=== PATIENT | female | born 1955 | race African-American/Black ===

== ENCOUNTER 2016-08-14 16:30 | Observation (INO) ==
[2016-08-14] MEDS ORDERED: MAGNESIUM SULF RIDER 4 GM in PREMIX 1 EACH IV PRN (17:06)
[2016-08-14] MEDS ORDERED: ACETAMINOPHEN 325 MG TABLET PO PRN (17:06)
[2016-08-14] MEDS ORDERED: ZALEPLON 5 MG CAPSULE PO PRN (17:06)
[2016-08-14] MEDS ORDERED: BISACODYL 5 MG TABLET PO PRN (17:06)
[2016-08-14] MEDS ORDERED: DOCUSATE SODIUM 100 MG CAPSULE PO PRN (17:06)
[2016-08-14] MEDS ORDERED: MAGNESIUM SULF RIDER 2 GM in PREMIX 1 EACH IV PRN (17:06)
[2016-08-14] MEDS ORDERED: NITROGLYCERIN SL 0.4 MG TABLET SL PRN (17:12)
[2016-08-14] MEDS ORDERED: ENOXAPARIN 120 MG/0.8 ML SYRINGE SUBCUT ONE (17:14)
[2016-08-14] MEDS ORDERED: ERGOCALCIFEROL 50,000 UNIT CAPSULE PO SCH (17:30)
[2016-08-14 19:21] LABS: Basophils % 0.2 % (0.0-0.8); Eosinophils # 0.1 10*3/uL (0.0-0.87); Eosinophils % 2.6 % (0.00-10.9); Hematocrit 35.9 VOL% (35.7-47.0); Hemoglobin 11.7 GM/DL (12.0-16.0); Immature Granulocytes % 0.4 %; Immature Granulocytes Absolute 0.02 #; Lymphocytes # 1.8 10*3/uL (1.4-4.0); Lymphocytes % 35.6 % (21.3-54.2); Mean Corpuscular HGB Conc 32.6 GM/DL (32-36); Mean Corpuscular Hemoglobin 28 PG (27-34); Mean Corpuscular Volume 86.9 FL (87-102); Mean Platelet Volume 9.6 FL (9.6-12.0); Monocytes # 0.5 10*3/uL (0.11-0.8); Monocytes % 9.8 % (1.7-12.7); Neutrophils # 2.6 10*3/uL (1.4-7.4); Neutrophils % 51.4 % (38.7-73.9); Platelet Count 162 T/CUMM (130-400); Red Blood Count 4.13 MC/CUMM (3.8-5.5); Red Cell Distribution Width 13.6 % (9.3-17.3)
--- NOTE | 2016-08-14 19:42 | XRay Report ---
Referring Physician: Lyndsay Dockery Exam: XR chest 1V portable Date: August 14, 2016 at 6:47 PM Reason: Shortness of breath Comparison: Chest x-ray portable August 26, 2013 Findings: The cardiac silhouette is normal in size for the portable technique. Soft tissue artifact is present at the lung bases. There is minimal atelectasis within the right midlung zone and possible venous congestion. No pneumothorax or definite pleural fluid is identified, but evaluation for pleural fluid is limited by the above-mentioned artifact at the lung bases. No acute osseous process is seen. Impression: There is minimal atelectasis within the right midlung zone and possible venous congestion. PROCEDURE INTERPRETED AT [facility] DEPARTMENT OF RADIOLOGY Final Report Signed by: Dr. Jeffrey Farrell
[2016-08-14 19:44] LABS: Troponin I Only < 0.015 NG/ML (0.00-0.045)
[2016-08-14 19:58] LABS: Alanine Aminotransferase 20 U/L (13-56); Albumin 3.6 G/DL (3.4-5.0); Alkaline Phosphatase 106 U/L (45-117); Aspartate Amino Transferase 24 U/L (0-37); Bilirubin,Total < 0.39 MG/DL (0.2-1.0); Blood Urea Nitrogen 16 MG/DL (7-18); Calcium 9.3 MG/DL (8.5-10.1); Glucose 106 MG/DL (74-106); Osmolality,Calculated 290.6 MOS/KG (273-304); Potassium 4.2 MMOL/L (3.5-5.1); Sodium 146 MMOL/L (136-145); Total Protein 6.8 G/DL (6.4-8.3)
[2016-08-14] MEDS: PROBENECID 500 MG TABLET PO SCH (21:06)
[2016-08-14] MEDS: CARVEDILOL 6.25 MG TABLET PO SCH (21:06)
[2016-08-14] MEDS: POTASSIUM CHLORIDE 10 MEQ TABLET PO SCH (21:06)
[2016-08-14] MEDS: ATORVASTATIN 40 MG TABLET PO SCH (21:06)
[2016-08-14] MEDS: CARBIDOPA/LEVODOPA 25-100 MG TABLET PO SCH (21:06)
[2016-08-15 00:48] LABS: Apearance,Urine CLEAR (Clear); Bilirubin,Urine Negative (Negative); Blood, Urine Negative (Negative); Glucose,Urine (UA) Negative (Negative); Ketones,Urine 5 mg/dL (Negative); Mucus,Urine Occasional /LPF (Occasional); Nitrite,Urine Negative (Negative); Protein,Urine Negative; RBC,Urine <1 /HPF (0-4); Squamous Epithelial Cell,Urine Occasional /HPF (0-10); Urine Color Yellow (Yellow); Urine Specific Gravity 1.016 (1.001-1.035); Urine Urobilinogen < 2.0 EU/DL (0.2-1.0); WBC,Urine <1 /HPF (0-6)
[2016-08-15 02:11] LABS: Basophils % 0.2 % (0.0-0.8); Eosinophils # 0.1 10*3/uL (0.0-0.87); Eosinophils % 2.7 % (0.00-10.9); Hematocrit 32.3 VOL% (35.7-47.0); Hemoglobin 10.4 GM/DL (12.0-16.0); Immature Granulocytes % 0.4 %; Immature Granulocytes Absolute 0.02 #; Lymphocytes % 41.9 % (21.3-54.2); Mean Corpuscular HGB Conc 32.2 GM/DL (32-36); Mean Corpuscular Hemoglobin 29 PG (27-34); Mean Corpuscular Volume 88.5 FL (87-102); Mean Platelet Volume 9.9 FL (9.6-12.0); Monocytes # 0.5 10*3/uL (0.11-0.8); Monocytes % 11.2 % (1.7-12.7); Neutrophils # 2.1 10*3/uL (1.4-7.4); Neutrophils % 43.6 % (38.7-73.9); Platelet Count 142 T/CUMM (130-400); Red Blood Count 3.65 MC/CUMM (3.8-5.5); Red Cell Distribution Width 13.5 % (9.3-17.3); White Blood Count 4.8 T/CUMM (4-12)
[2016-08-15 02:43] LABS: Troponin I Only < 0.015 NG/ML (0.00-0.045)
[2016-08-15 03:06] LABS: Alanine Aminotransferase < 6 U/L (13-56); Albumin 3.2 G/DL (3.4-5.0); Alkaline Phosphatase 90 U/L (45-117); Aspartate Amino Transferase 19 U/L (0-37); Bilirubin,Total < 0.39 MG/DL (0.2-1.0); Blood Urea Nitrogen 16 MG/DL (7-18); Calcium 8.6 MG/DL (8.5-10.1); Cholesterol 175 MG/DL (50-200); Glucose 113 MG/DL (74-106); HDL Cholesterol 54 MG/DL (40-60); Osmolality,Calculated 287.8 MOS/KG (273-304); Potassium 3.9 MMOL/L (3.5-5.1); Risk Ratio 3.24; Sodium 144 MMOL/L (136-145); Triglycerides 133 MG/DL (2-150); VLDL CHOLESTEROL 26.6 MG/DL
--- NOTE | 2016-08-15 06:35 | EKG Report ---
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
--- NOTE | 2016-08-15 07:24 | EKG Report ---
Stationary ECG Study [facility] Test Date: 08/15/2016 7:23:22 AM Pat Name: ABIEL COPELAND Department: Room: 268 Gender: F Solutions Architect: TAMIA : 1955 Requested by: Lyndsay Allison Order Number: [id number] Reading MD: REGULO STOVER Intervals [place] Rate: 56 P: 37 AR: 181 QRS: -9 QRSD: 94 T: 38 QT: 458 QTc: 450 Interpretive Statements SINUS RHYTHM At 56 bpm MINIMAL VOLTAGE CRITERIA FOR LVH, CONSIDER NORMAL VARIANT Electronically Signed On 08-20-16 15:25:13 CDT by REGULO STOVER [email or web address]
[2016-08-15] MEDS: LEVOTHYROXINE 25 MCG TABLET PO SCH (07:27)
--- NOTE | 2016-08-15 08:30 | Cardiology Progress Note ---
<Lyndsay Dockery E - Last Filed: 08/15/16 10:19> Assessment and Plan - Time spent with patient Time spent with patient: Greater than 30 minutes (1) Chest pain Status: Acute Assessment and plan: See plan of care listed below Current Visit: Yes (2) CAD (coronary artery disease) Status: Chronic Assessment and plan: See plan of care listed below Current Visit: Yes (3) Hypertension Status: Chronic Assessment and plan: See plan of care listed below Current Visit: Yes (4) Dyslipidemia Status: Chronic Assessment and plan: See plan of care listed below Current Visit: Yes (5) Obesity Status: Chronic Assessment and plan: See plan of care listed below Current Visit: Yes (6) Sleep apnea Status: Chronic Assessment and plan: See plan of care listed below Current Visit: Yes (7) Diabetes Status: Chronic Assessment and plan: See plan of care listed below Current Visit: Yes Cardiology - PN: Subj Interval history: PROGRAMMER BUSINESS: DR. CELIS Note from Dr. Celis's clinic has been scanned-in and will serve as her history and physical for admission. Ms. Doe, 61BF, was directly admitted from Dr. Celis's office yesterday with complaints concerning for angina. Patient identifies 2 different types of chest discomfort in the middle and left chest area. One is reproducible to palpation (described as sharp and stabbing) and one is occurring with exertion. Patient describes the latter chest pain as heaviness located in the mid to left chest area. This is occurring at various times, including with exertion. This is occurring once or twice daily lasting several minutes until she rests. There is no radiation, nausea, vomiting but it does affect her breathing. She rates the discomfort as 7 on a scale of 1-10. She is currently chest pain- free. She acknowledges that she has found difficulty walking room to room over the past several weeks without having to rest due to significant dyspnea on exertion. With this exertion, she often experiences a chest heaviness. Cardiac biomarkers are negative, EKG is unremarkable. History of known coronary artery disease. Last cardiac catheterization August 28, 2013 revealed numerous patent stents without evidence of significant fixed coronary obstruction, normal LVEF. Echocardiogram was done August 07, 2016 at [facility]. I do not have these results. Patient also acknowledges that she has had blood clots in her left lower leg over 10 years ago. I will order stat venous ultrasound bilateral lower extremities, d-dimer. I will keep her n.p.o. and discussed with Dr. Nava further need for cardiac workup including possible cardiac catheterization. She denies a history of IVP dye or shellfish allergy. ASSESSMENT/PLAN: 1. CHEST PAIN - some typical and atypical features. NPO for further testing this morning. 2. KNOWN CAD - continue ASA, betablocker. Lisinopril 5mg orally is a home med but was held due to possible LHC. 3. HYPERTENSION - usually well controlled. On betablocker, 4. DYSLIPIDEMIA - LDL 90. Changed Simvastatin (due to multiple drug interactions) to Atorvastatin this morning. 5. OBESITY - dietary counseling prior to discharge. 6. SLEEP APNEA - reports compliance with device Exam (Progress Note) - Constitutional Vitals: Period Temp Pulse Resp BP Sys/Ambriz Pulse Ox Last 24 Hr 97.7 F-9703 F 62-75 18-20 141-165/75-88 96-98 Exam: General: [Appears well with no apparent distress.] [Pleasant and cooperative. ] [Appears comfortable.] HEENT: [PERRL, normocephalic, atraumatic. Mucous membranes moist. No jaundice noted. Conjunctiva moist and clear, sclerae anicteric] Neck: No JVD/HJR, no thyromegaly or lymphadenopathy noted. No carotid bruit appreciated Cardiac: [Regular rate and rhythm.] [No murmur rub or gallop.] Lungs: [Clear to auscultation without accessory muscle use to assist the respiratory pattern.] Using oxygen intermittently Abdomen: Soft, bowel sounds normoactive. Nontender and nondistended. No abdominal bruit or thrill noted. No masses noted. Musculoskeletal: No fluid collection. Decreased range of motion is noted. Extremities: No clubbing, cyanosis noted. [ No edema noted.] Upper extremity pulses 2+. Lower extremity pulses 2+. Capillary refill less than 3 seconds. Skin: No unusual lesions or rashes. No skin breakdown appreciated. Neuro: Awake, alert and oriented 3. Moves all extremities well without hemiparesis or paralysis. No essential tremor is appreciated. Result/EKG - Labs CBC & BMP: 08/15/16 01:43 08/15/16 01:43 Lab Results: I have reviewed the past 24 hour labs Labs: Laboratory Results - last 24 hr 08/14/16 08/14/16 08/14/16 00:00 19:05 19:05 WBC 5.0 RBC 4.13 Hgb 11.7 L Hct 35.9 MCV 86.9 L MCH 28 MCHC 32.6 RDW 13.6 Plt Count 162 MPV 9.6 Neut % (Auto) 51.4 Lymph % (Auto) 35.6 Routt % (Auto) 9.8 Eos % (Auto) 2.6 Baso % (Auto) 0.2 Neut # (Auto) 2.6 Lymph # (Auto) 1.8 Routt # (Auto) 0.5 Eos # (Auto) 0.1 Baso # (Auto) 0.0 Immature Gran % 0.4 Nucleated RBC % 0.0 Immature Gran # 0.02 Nucleated RBCs # 0.00 Sodium 146 H Potassium 4.2 Chloride 108 H Carbon Dioxide 28 Anion Gap 14.2 BUN 16 Creatinine 1.20 H GFR Calculation 0 BUN/Creatinine Ratio 13.00 Glucose 106 POC Glucose Calculated Osmolality 290.6 Calcium 9.3 Total Bilirubin < 0.39 AST 24 ALT 20 Alkaline Phosphatase 106 Total Creatine Kinase CK-MB (CK-2) Troponin I B-Natriuretic Peptide Total Protein 6.8 Albumin 3.6 Globulin 3.2 Albumin/Globulin Ratio 1.1 Triglycerides Cholesterol LDL Cholesterol VLDL Cholesterol HDL Cholesterol Heart Disease Risk Ratio TSH 3rd Generation 2.610 Urine Color Yellow Urine Appearance Clear Urine pH 6.0 Ur Specific [place] 1.016 Urine Protein Negative Urine Glucose (UA) Negative Urine Ketones 5 Urine Blood Negative Urine Nitrate Negative Urine Bilirubin Negative Urine Urobilinogen < 2.0 H Urine Leukocytes Negative Urine RBC <1 Urine WBC <1 Ur Squamous Epith Cells Occasional Urine Mucus Occasional Ur Culture Indicated? Not indicated 08/14/16 08/14/16 08/15/16 19:05 19:05 01:43 WBC RBC Hgb Hct MCV MCH MCHC RDW Plt Count MPV Neut % (Auto) Lymph % (Auto) [place] % (Auto) Eos % (Auto) Baso % (Auto) Neut # (Auto) Lymph # (Auto) [place] # (Auto) Eos # (Auto) Baso # (Auto) Immature Gran % Nucleated RBC % Immature Gran # Nucleated RBCs # Sodium Potassium Chloride Carbon Dioxide Anion Gap BUN Creatinine GFR Calculation BUN/Creatinine Ratio Glucose POC Glucose Calculated Osmolality Calcium Total Bilirubin AST ALT Alkaline Phosphatase Total Creatine Kinase 197 H 161 CK-MB (CK-2) 1.7 1.3 Troponin I < 0.015 < 0.015 B-Natriuretic Peptide 132 H Total Protein Albumin Globulin Albumin/Globulin Ratio Triglycerides Cholesterol LDL Cholesterol VLDL Cholesterol HDL Cholesterol Heart Disease Risk Ratio TSH 3rd Generation Urine Color Urine Appearance Urine pH Ur Specific [place] Urine Protein Urine Glucose (UA) Urine Ketones Urine Blood Urine Nitrate Urine Bilirubin Urine Urobilinogen Urine Leukocytes Urine RBC Urine WBC Ur Squamous Epith Cells Urine Mucus Ur Culture Indicated? 08/15/16 08/15/16 08/15/16 01:43 01:43 08:04 WBC 4.8 RBC 3.65 L Hgb 10.4 L Hct 32.3 L MCV 88.5 MCH 29 MCHC 32.2 RDW 13.5 Plt Count 142 MPV 9.9 Neut % (Auto) 43.6 Lymph % (Auto) 41.9 [place] % (Auto) 11.2 Eos % (Auto) 2.7 Baso % (Auto) 0.2 Neut # (Auto) 2.1 Lymph # (Auto) 2.0 [place] # (Auto) 0.5 Eos # (Auto) 0.1 Baso # (Auto) 0.0 Immature Gran % 0.4 Nucleated RBC % 0.0 Immature Gran # 0.02 Nucleated RBCs # 0.00 Sodium 144 Potassium 3.9 Chloride 108 H Carbon Dioxide 26 Anion Gap 13.9 BUN 16 Creatinine 1.20 H GFR Calculation 1356 BUN/Creatinine Ratio 13.00 Glucose 113 H POC Glucose 100 Calculated Osmolality 287.8 Calcium 8.6 Total Bilirubin < 0.39 AST 19 ALT < 6 L Alkaline Phosphatase 90 Total Creatine Kinase CK-MB (CK-2) Troponin I B-Natriuretic Peptide Total Protein 6.0 L Albumin 3.2 L Globulin 2.8 Albumin/Globulin Ratio 1.1 Triglycerides 133 Cholesterol 175 LDL Cholesterol 90.0 VLDL Cholesterol 26.6 HDL Cholesterol 54 Heart Disease Risk Ratio 3.24 TSH 3rd Generation Urine Color Urine Appearance Urine pH Ur Specific [place] Urine Protein Urine Glucose (UA) Urine Ketones Urine Blood Urine Nitrate Urine Bilirubin Urine Urobilinogen Urine Leukocytes Urine RBC Urine WBC Ur Squamous Epith Cells Urine Mucus Ur Culture Indicated? - Diagnostic Findings Procedure: Chest x-ray: report reviewed by me - EKG EKG results: interpreted by wi EKG shows: sinus rhythm <Salvador Nava - Last Filed: 08/15/16 14:02> Cardiology - PN: Subj Interval history: Patient personally interviewed and examined and chart reviewed. I discussed this case with Lyndsay Dockery NP. I agree with the assessment and evaluation and plan. The patient has 2 types of chest pain one which is atypical for cardiac other than the heavy pressure sensation on his current disease and multiple risk factors certainly begs for definitive diagnosis. I think the patient had cardiac catheterization I discussed this with the patient the indication procedure having be carried out as well as the risk. I discussed cardiac catheterization and percutaneous coronary intervention with the patient and available family. I reviewed with them the indications for the procedure and the basis of how the procedure would be carried out. I also reviewed with them the risk of the procedure which include but not necessarily limited to access site bleeding, bruising, pain, swelling or vascular injury that may require emergency vascular surgery, blood transfusion, or thrombin injection. Also discussed the possibility of stroke, myocardial infarction, arrhythmia which may require electrocardioversion, and the possibility of dye reaction that would require medical therapy. Also discussed the possibility of coronary artery injury, ruptured, closure or perforation that may require emergency bypass surgery. We also discussed the possibility of from a major complication. They voice understanding and agree to proceed. Standard agrees to proceed. Postprocedure the patient will need risk factor modification. She will keep her follow with Dr. Celis as an outpatient. Exam (Progress Note) - Constitutional Vitals: Period Temp Pulse Resp BP Sys/Ambriz Pulse Ox Last 24 Hr 96.8 F-9703 F 56-75 18-20 141-165/75-88 96-100 Result/EKG - Labs CBC & BMP: 08/15/16 01:43 08/15/16 01:43 Labs: Laboratory Results - last 24 hr 08/14/16 08/14/16 08/14/16 00:00 19:05 19:05 WBC 5.0 RBC 4.13 Hgb 11.7 L Hct 35.9 MCV 86.9 L MCH 28 MCHC 32.6 RDW 13.6 Plt Count 162 MPV 9.6 Neut % (Auto) 51.4 Lymph % (Auto) 35.6 [place] % (Auto) 9.8 Eos % (Auto) 2.6 Baso % (Auto) 0.2 Neut # (Auto) 2.6 Lymph # (Auto) 1.8 [place] # (Auto) 0.5 Eos # (Auto) 0.1 Baso # (Auto) 0.0 Immature Gran % 0.4 Nucleated RBC % 0.0 Immature Gran # 0.02 Nucleated RBCs # 0.00 INR PT Patient/Control Mix D-Dimer, Quantitative Sodium 146 H Potassium 4.2 Chloride 108 H Carbon Dioxide 28 Anion Gap 14.2 BUN 16 Creatinine 1.20 H GFR Calculation 0 BUN/Creatinine Ratio 13.00 Glucose 106 POC Glucose Calculated Osmolality 290.6 Calcium 9.3 Total Bilirubin < 0.39 AST 24 ALT 20 Alkaline Phosphatase 106 Total Creatine Kinase CK-MB (CK-2) Troponin I B-Natriuretic Peptide Total Protein 6.8 Albumin 3.6 Globulin 3.2 Albumin/Globulin Ratio 1.1 Triglycerides Cholesterol LDL Cholesterol VLDL Cholesterol HDL Cholesterol Heart Disease Risk Ratio TSH 3rd Generation 2.610 Urine Color Yellow Urine Appearance Clear Urine pH 6.0 Ur Specific [place] 1.016 Urine Protein Negative Urine Glucose (UA) Negative Urine Ketones 5 Urine Blood Negative Urine Nitrate Negative Urine Bilirubin Negative Urine Urobilinogen < 2.0 H Urine Leukocytes Negative Urine RBC <1 Urine WBC <1 Ur Squamous Epith Cells Occasional Urine Mucus Occasional Ur Culture Indicated? Not indicated 08/14/16 08/14/16 08/15/16 19:05 19:05 01:43 WBC RBC Hgb Hct MCV MCH MCHC RDW Plt Count MPV Neut % (Auto) Lymph % (Auto) [place] % (Auto) Eos % (Auto) Baso % (Auto) Neut # (Auto) Lymph # (Auto) [place] # (Auto) Eos # (Auto) Baso # (Auto) Immature Gran % Nucleated RBC % Immature Gran # Nucleated RBCs # INR PT Patient/Control Mix D-Dimer, Quantitative Sodium Potassium Chloride Carbon Dioxide Anion Gap BUN Creatinine GFR Calculation BUN/Creatinine Ratio Glucose POC Glucose Calculated Osmolality Calcium Total Bilirubin AST ALT Alkaline Phosphatase Total Creatine Kinase 197 H 161 CK-MB (CK-2) 1.7 1.3 Troponin I < 0.015 < 0.015 B-Natriuretic Peptide 132 H Total Protein Albumin Globulin Albumin/Globulin Ratio Triglycerides Cholesterol LDL Cholesterol VLDL Cholesterol HDL Cholesterol Heart Disease Risk Ratio TSH 3rd Generation Urine Color Urine Appearance Urine pH Ur Specific [place] Urine Protein Urine Glucose (UA) Urine Ketones Urine Blood Urine Nitrate Urine Bilirubin Urine Urobilinogen Urine Leukocytes Urine RBC Urine WBC Ur Squamous Epith Cells Urine Mucus Ur Culture Indicated? 08/15/16 08/15/16 08/15/16 01:43 01:43 08:04 WBC 4.8 RBC 3.65 L Hgb 10.4 L Hct 32.3 L MCV 88.5 MCH 29 MCHC 32.2 RDW 13.5 Plt Count 142 MPV 9.9 Neut % (Auto) 43.6 Lymph % (Auto) 41.9 [place] % (Auto) 11.2 Eos % (Auto) 2.7 Baso % (Auto) 0.2 Neut # (Auto) 2.1 Lymph # (Auto) 2.0 [place] # (Auto) 0.5 Eos # (Auto) 0.1 Baso # (Auto) 0.0 Immature Gran % 0.4 Nucleated RBC % 0.0 Immature Gran # 0.02 Nucleated RBCs # 0.00 INR PT Patient/Control Mix D-Dimer, Quantitative Sodium 144 Potassium 3.9 Chloride 108 H Carbon Dioxide 26 Anion Gap 13.9 BUN 16 Creatinine 1.20 H GFR Calculation 1356 BUN/Creatinine Ratio 13.00 Glucose 113 H POC Glucose 100 Calculated Osmolality 287.8 Calcium 8.6 Total Bilirubin < 0.39 AST 19 ALT < 6 L Alkaline Phosphatase 90 Total Creatine Kinase CK-MB (CK-2) Troponin I B-Natriuretic Peptide Total Protein 6.0 L Albumin 3.2 L Globulin 2.8 Albumin/Globulin Ratio 1.1 Triglycerides 133 Cholesterol 175 LDL Cholesterol 90.0 VLDL Cholesterol 26.6 HDL Cholesterol 54 Heart Disease Risk Ratio 3.24 TSH 3rd Generation Urine Color Urine Appearance Urine pH Ur Specific [place] Urine Protein Urine Glucose (UA) Urine Ketones Urine Blood Urine Nitrate Urine Bilirubin Urine Urobilinogen Urine Leukocytes Urine RBC Urine WBC Ur Squamous Epith Cells Urine Mucus Ur Culture Indicated? 08/15/16 08/15/16 08/15/16 10:10 10:17 10:17 WBC RBC Hgb Hct MCV MCH MCHC RDW Plt Count MPV Neut % (Auto) Lymph % (Auto) [place] % (Auto) Eos % (Auto) Baso % (Auto) Neut # (Auto) Lymph # (Auto) [place] # (Auto) Eos # (Auto) Baso # (Auto) Immature Gran % Nucleated RBC % Immature Gran # Nucleated RBCs # INR 1.0 PT Patient/Control Mix 10.6 D-Dimer, Quantitative 0.9 Sodium Potassium Chloride Carbon Dioxide Anion Gap BUN Creatinine GFR Calculation BUN/Creatinine Ratio Glucose POC Glucose Calculated Osmolality Calcium Total Bilirubin AST ALT Alkaline Phosphatase Total Creatine Kinase 173 CK-MB (CK-2) 1.4 Troponin I < 0.015 B-Natriuretic Peptide Total Protein Albumin Globulin Albumin/Globulin Ratio Triglycerides Cholesterol LDL Cholesterol VLDL Cholesterol HDL Cholesterol Heart Disease Risk Ratio TSH 3rd Generation Urine Color Urine Appearance Urine pH Ur Specific [place] Urine Protein Urine Glucose (UA) Urine Ketones Urine Blood Urine Nitrate Urine Bilirubin Urine Urobilinogen Urine Leukocytes Urine RBC Urine WBC Ur Squamous Epith Cells Urine Mucus Ur Culture Indicated? 08/15/16 11:27 WBC RBC Hgb Hct MCV MCH MCHC RDW Plt Count MPV Neut % (Auto) Lymph % (Auto) [place] % (Auto) Eos % (Auto) Baso % (Auto) Neut # (Auto) Lymph # (Auto) [place] # (Auto) Eos # (Auto) Baso # (Auto) Immature Gran % Nucleated RBC % Immature Gran # Nucleated RBCs # INR PT Patient/Control Mix D-Dimer, Quantitative Sodium Potassium Chloride Carbon Dioxide Anion Gap BUN Creatinine GFR Calculation BUN/Creatinine Ratio Glucose POC Glucose 89 Calculated Osmolality Calcium Total Bilirubin AST ALT Alkaline Phosphatase Total Creatine Kinase CK-MB (CK-2) Troponin I B-Natriuretic Peptide Total Protein Albumin Globulin Albumin/Globulin Ratio Triglycerides Cholesterol LDL Cholesterol VLDL Cholesterol HDL Cholesterol Heart Disease Risk Ratio TSH 3rd Generation Urine Color Urine Appearance Urine pH Ur Specific [place] Urine Protein Urine Glucose (UA) Urine Ketones Urine Blood Urine Nitrate Urine Bilirubin Urine Urobilinogen Urine Leukocytes Urine RBC Urine WBC Ur Squamous Epith Cells Urine Mucus Ur Culture Indicated?
[2016-08-15] MEDS ORDERED: ASPIRIN EC 325 MG TABLET PO SCH (09:00)
[2016-08-15] MEDS ORDERED: metOLazone 5 MG TABLET PO SCH (09:00)
[2016-08-15] MEDS ORDERED: SIMVASTATIN 40 MG TABLET PO SCH (09:00)
--- NOTE | 2016-08-15 10:11 | Ultrasound Report ---
US venous doppler LE BI Indication: Edema. Comparison: No relevant comparison. Technique: Grayscale, spectral, and color Doppler interrogation of the bilateral lower extremity veins was performed. Augmentation and compression was performed. Findings: Grayscale, color Doppler, and pulsed Doppler evaluation of the veins of the bilateral lower extremity demonstrates no evidence of deep venous thrombosis. IMPRESSION: No evidence of deep venous thrombosis in either lower extremity. PROCEDURE INTERPRETED AT [facility] DEPARTMENT OF RADIOLOGY Final Report Signed by: Dr Bari Olivia
[2016-08-15] MEDS ORDERED: POTASSIUM CHLORIDE RIDER 10 MEQ in PREMIX 1 EACH IV PRN (10:52)
[2016-08-15] MEDS ORDERED: diphenhydrAMINE CAP 25 MG CAPSULE PO ONE (10:52)
[2016-08-15] MEDS ORDERED: MAGNESIUM SULF RIDER 2 GM in PREMIX 1 EACH IV PRN (10:52)
[2016-08-15 10:53] LABS: Troponin I Only < 0.015 NG/ML (0.00-0.045)
[2016-08-15] MEDS ORDERED: DIAZEPAM 5 MG TABLET PO ONE (11:00)
[2016-08-15 11:55] LABS: PT Patient Result 10.6 SECS
[2016-08-15] MEDS: CARBIDOPA/LEVODOPA 25-100 MG TABLET PO SCH ×2 (12:36→21:29)
[2016-08-15] MEDS: CYANOCOBALAMIN 500 MCG TABLET PO SCH (12:37)
[2016-08-15] MEDS: SERTRALINE 100 MG TABLET PO SCH (12:37)
[2016-08-15] MEDS: MONTELUKAST 10 MG TABLET PO SCH (12:37)
[2016-08-15] MEDS: CARVEDILOL 6.25 MG TABLET PO SCH ×2 (12:37→21:29)
[2016-08-15] MEDS: OMEGA 3 ACID ETHYL ESTERS 1 GM CAPSULE PO SCH (12:38)
[2016-08-15] MEDS: amLODIPine 5 MG TABLET PO SCH (12:38)
[2016-08-15] MEDS: PANTOPRAZOLE 40 MG TABLET PO SCH (12:39)
[2016-08-15] MEDS: PROBENECID 500 MG TABLET PO SCH ×2 (12:41→21:29)
[2016-08-15] MEDS: POTASSIUM CHLORIDE 10 MEQ TABLET PO SCH ×3 (12:42→21:28)
--- NOTE | 2016-08-15 12:51 | Event Note ---
Ms. Doe reports recurrent chest pain with exertional component. She has no history of CAD with previous stents. She ruled out for AL. We will schedule heart catheterization for right radial approach. I discussed with the patient the risks and benefits of heart catheterization including but not limited to: , stroke, heart attack, vascular damage, reaction to medicine or dye, bleeding requiring blood transfusion, failure of the procedure, and the possible need for planned or emergency surgery. I have answered all the patient's questions regarding the procedure, and the patient is agreeable to proceed.
[2016-08-15] MEDS ORDERED: LIDOCAINE 1% 20 ML VIAL ONE (12:55)
[2016-08-15] MEDS ORDERED: HYDROmorphone 2 MG/1 ML VIAL ONE (13:01)
[2016-08-15] MEDS ORDERED: MIDAZOLAM 2 MG/2 ML VIAL ONE (13:02)
[2016-08-15] MEDS ORDERED: NITROGLYCERIN DRIP 50 MG/250 ML BOTTLE IV ONE (13:21)
[2016-08-15] MEDS ORDERED: VERAPAMIL 5 MG/2 ML VIAL ONE (13:21)
[2016-08-15] MEDS ORDERED: ADENOSINE 90 MG/30 ML VIAL IV ONE (13:44)
[2016-08-15] MEDS ORDERED: ENOXAPARIN 60 MG/0.6 ML SYRINGE ONE (13:46)
[2016-08-15] MEDS ORDERED: hydrALAZINE 20 MG/1 ML VIAL ONE (14:02)
[2016-08-15] MEDS ORDERED: TICAGRELOR 90 MG TABLET ONE (14:11)
[2016-08-15] MEDS ORDERED: ONDANSETRON 4 MG/2 ML VIAL IV PRN (14:15)
[2016-08-15] MEDS ORDERED: SODIUM CHLORIDE 0.45% 1,000 ML IV SCH (14:30)
--- NOTE | 2016-08-15 14:30 | Cardiac Catheterization ---
Date of Procedure:: 08/15/16 Post-op diagnosis: same Procedure: Procedure performed: 1. Left heart catheterization 2. Coronary angiography 3. WaveWire evaluation of distal LAD lesion 4. Angioplasty stenting of distal LAD lesion with drug eluting stent oh (2.25 x 15 Synergy) Brief clinical summary: Mrs. Doe is a 61 year-old history of multiple stents having chest discomfort episodes repeatedly at times with exertional component. She ruled out for AL. Description of procedure: After obtaining informed consent the patient transferred to the catheterization lab, and the right wrist was prepped and draped in the usual sterile fashion. Next a short 6 Bengali sheath was placed in the right radial artery using the Seldinger technique after the patient received IV sedation, and local anesthetic. I then injected a vasodilator cocktail into the sheath. We gave her 0.5 mg per kilogram of intravenous Lovenox prior to the percutaneous intervention. The patient had received 1 mg/ kg of Lovenox over 12 hours ago. Next a 5 Bengali TIG catheter was advanced and engaged to the left coronary artery after which angiogram was performed in multiple views. This was then pulled back and manipulated to engage the right coronary artery where angiograms were taken multiple views. The catheter was removed over a J-wire. Percutaneous coronary mention was then performed as described below. Hemostasis was obtained with a TR band, using "patent hemostasis" technique. The patient was transferred from the catheterization lab in good condition. Percutaneous coronary intervention: An AL-1 guiding catheter was engaged to the left coronary artery which provided good support. A wave wire advanced the distal LAD with little difficulty. Next an adenosine infusion was started and after 1 minute the FFR was significant at 0.72. Therefore the infusion was discontinued, and a 2.0 x 12 noncompliant balloon was advanced across the area of distal LAD disease and was dilated multiple times eventually to rated burst pressure. There was probably 30% residual stenosis. The balloon was removed and a 2.25 x 16 Synergy stent was advanced across her disease was dilated to nominal pressures. The balloon was advanced a few millimeters in the distal edge was dilated to 3 roberto for 30 seconds. There was an excellent angiographic result. The patient tolerated the procedure well. Coronary angiography: Left main coronary is notable for disease per left introducing arteries proximally average caliber which is apex with diffuse 30-40 % disease proximally, and a discrete area of 70% disease distally. There are couple of tiny disease diagonal branches. Circumflex gives off a very small ramus branch, and a very large OM1 branch as well as a thin lady OM 2 branch. Proximal 50% discrete stenosis. Otherwise there are moderate irregularities. The right coronary artery is the dominant vessel is of average caliber. There is a 30-40% proximal stenosis, and moderate irregularities with a 60% proximal posterior lateral stenosis. The PDA appears to be from a early takeoff acute marginal for the most part. Impression: 1. Right dominant system 2. Coronary artery disease as described above including but not limited to: A. 30-40% proximal LAD disease with what appears to be a widely patent mid LAD stent, and discrete 70% distal LAD stenosis (deemed significant by WaveWire evaluation with FFR of 0.72 after 1 minute of adenosine infusion) B. 50% proximal circumflex stenosis with probable widely patent proximal OM stent (large marginal) C. 30-40% proximal RCA stenosis with 60% discrete proximal posterolateral stenosis 3. Status post angioplasty and stenting of distal LAD lesion with 2.25 x 16 Synergy drug-eluting stent with good result Recommendation discussion: I believe that she did very good result with regard to stenting Ms. Cannon distal LAD lesion. She will need to continue on aspirin and Brilinta. We will watch her overnight and have ordered her gentle hydration and holding her diuretics until morning. Anesthesia: minimal conscious sedation Surgeon / Physician: Jitendra Mann [employer] Supervisor: other Estimated blood loss: minimal Specimens: none sent Condition: stable Disposition: floor - Medications / Follow-up
--- NOTE | 2016-08-15 14:53 | Cardiac Catheterization ---
Date of Procedure:: 08/15/16 Post-op diagnosis: same Anesthesia: minimal conscious sedation Surgeon / Physician: Jitendra Mann Asbestos Surveyor: other Estimated blood loss: minimal Specimens: none sent Condition: stable Disposition: floor - Medications / Follow-up
--- NOTE | 2016-08-15 14:58 | EKG Report ---
Stationary ECG Study [facility] Test Date: 08/15/2016 2:57:52 PM Pat Name: ABIEL COPELAND Department: Room: 268 Gender: F Compliance Engineer Products: MICHELLE : 1955 Requested by: Jitendra Connors Order Number: [id number] Reading MD: REGULO STOVER Intervals [place] Rate: 63 P: 51 DC: 162 QRS: -9 QRSD: 101 T: 42 QT: 455 QTc: 463 Interpretive Statements SINUS RHYTHM WNL Electronically Signed On 08-20-16 15:38:52 CDT by REGULO STOVER [email or web address]
[2016-08-15 17:04] LABS: Troponin I Only < 0.015 NG/ML (0.00-0.045)
[2016-08-15] MEDS: FUROSEMIDE 80 MG TABLET PO SCH (17:37)
[2016-08-15] MEDS: sitaGLIPtin 100 MG TABLET PO SCH (17:37)
[2016-08-15] MEDS: ATORVASTATIN 40 MG TABLET PO SCH (21:28)
[2016-08-15] MEDS: TICAGRELOR 90 MG TABLET PO SCH (21:29)
[2016-08-16] MEDS: LEVOTHYROXINE 25 MCG TABLET PO SCH (06:00)
[2016-08-16 06:09] LABS: Basophils % 0.2 % (0.0-0.8); Eosinophils # 0.2 10*3/uL (0.0-0.87); Eosinophils % 3.5 % (0.00-10.9); Hematocrit 35.6 VOL% (35.7-47.0); Hemoglobin 11.8 GM/DL (12.0-16.0); Immature Granulocytes % 0.7 %; Immature Granulocytes Absolute 0.03 #; Lymphocytes # 1.4 10*3/uL (1.4-4.0); Lymphocytes % 30.2 % (21.3-54.2); Mean Corpuscular HGB Conc 33.1 GM/DL (32-36); Mean Corpuscular Hemoglobin 29 PG (27-34); Mean Corpuscular Volume 87.3 FL (87-102); Mean Platelet Volume 9.8 FL (9.6-12.0); Monocytes # 0.5 10*3/uL (0.11-0.8); Monocytes % 10.8 % (1.7-12.7); Neutrophils # 2.5 10*3/uL (1.4-7.4); Neutrophils % 54.6 % (38.7-73.9); Platelet Count 175 T/CUMM (130-400); Red Blood Count 4.08 MC/CUMM (3.8-5.5); Red Cell Distribution Width 13.7 % (9.3-17.3); White Blood Count 4.5 T/CUMM (4-12)
[2016-08-16 06:51] LABS: Calcium 8.6 MG/DL (8.5-10.1); Magnesium 1.9 MG/DL (1.8-2.4); Osmolality,Calculated 281.3 MOS/KG (273-304); Potassium 3.9 MMOL/L (3.5-5.1)
[2016-08-16 06:52] LABS: Troponin I Only < 0.015 NG/ML (0.00-0.045)
--- NOTE | 2016-08-16 07:07 | EKG Report ---
Stationary ECG Study [facility] Test Date: 08/16/2016 7:07:08 AM Pat Name: ABIEL COPELAND Department: Room: 268 Gender: F Director Of Gift Planning: TAMIA : 1955 Requested by: Jitendra Connors Order Number: [id number] Reading MD: REGULO STOVER Intervals [place] Rate: 69 P: 23 [place]: 168 QRS: 25 QRSD: 98 T: -1 QT: 447 QTc: 465 Interpretive Statements SINUS RHYTHM At 69 bpm LOW QRS VOLTAGE IN PRECORDIAL LEADS Mild and ST Electronically Signed On 08-20-16 15:55:11 CDT by REGULO STOVER [id number]
[2016-08-16 07:45] VITALS: BP 132/72
[2016-08-16] MEDS ORDERED: ASPIRIN EC 81 MG TABLET PO SCH (09:00)
[2016-08-16] MEDS: MONTELUKAST 10 MG TABLET PO SCH (09:13)
[2016-08-16] MEDS: amLODIPine 5 MG TABLET PO SCH (09:14)
[2016-08-16] MEDS: CARVEDILOL 6.25 MG TABLET PO SCH (09:14)
[2016-08-16] MEDS: TICAGRELOR 90 MG TABLET PO SCH (09:14)
[2016-08-16] MEDS: PANTOPRAZOLE 40 MG TABLET PO SCH (09:14)
[2016-08-16] MEDS: OMEGA 3 ACID ETHYL ESTERS 1 GM CAPSULE PO SCH (09:14)
[2016-08-16] MEDS: POTASSIUM CHLORIDE 10 MEQ TABLET PO SCH (09:14)
[2016-08-16] MEDS: SERTRALINE 100 MG TABLET PO SCH (09:15)
[2016-08-16] MEDS: sitaGLIPtin 100 MG TABLET PO SCH (09:15)
[2016-08-16] MEDS: PROBENECID 500 MG TABLET PO SCH (09:15)
[2016-08-16] MEDS: CARBIDOPA/LEVODOPA 25-100 MG TABLET PO SCH (09:16)
[2016-08-16] MEDS: FUROSEMIDE 80 MG TABLET PO SCH (09:16)
[2016-08-16] MEDS: CYANOCOBALAMIN 500 MCG TABLET PO SCH (09:16)
--- NOTE | 2016-08-16 10:13 | Discharge Summary ---
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 CELIS Ms. Doe, 61BF, was directly admitted from Dr. Celis's office August 14, 2016 for complaints concerning for angina. Cardiac biomarkers were negative. She did undergo elective cardiac catheterization August 15, 2016, performed by Dr. Mann. The following impression is noted: Impression: 1. Right dominant system 2. Coronary artery disease as described above including but not limited to: A. 30-40% proximal LAD disease with what appears to be a widely patent mid LAD stent, and discrete 70% distal LAD stenosis (deemed significant by Wave[employer] evaluation with FFR of 0.72 after 1 minute of adenosine infusion) B. 50% proximal circumflex stenosis with probable widely patent proximal OM stent (large marginal) C. 30-40% proximal RCA stenosis with 60% discrete proximal posterolateral stenosis 3. Status post angioplasty and stenting of distal LAD lesion with 2.25 x 16 Synergy drug-eluting stent with good result She tolerated the procedure well without complication and was returned to our telemetry unit in stable condition. Right radius access reveals no evidence of hematoma. Right radial pulse 3+ with brisk capillary refill. Labs overnight are stable. She has been ambulating and is anxious for release home. Having felt she is met maximal medical therapy, patient is being discharged home in stable condition. She will be given a 2 week follow-up appointment Dr. Celis. Patient will resume all preadmission cardiac medications including the following : Aspirin 81 mg orally daily Atorvastatin 40 mg orally each evening since his new) Carvedilol 6.25 mg orally twice daily Lasix 80 mg orally daily Nitroglycerin sublingual as needed Pantoprazole 40 mg grams orally daily Brilinta 90 mg orally twice daily without fail Amlodipine 5 mg orally daily Zaroxolyn 5 mg orally every other day Patient may benefit from an JOSY inhibitor and will defer to Dr. Celis's discretion to incorporate as able. - Time spent with patient Time with patient DS: Greater than 30 minutes Diagnosis - Discharge Diagnosis (1) Chest pain Status: Resolved (2) CAD (coronary artery disease) Status: Chronic (3) Hypertension Status: Chronic (4) Dyslipidemia Status: Chronic (5) Obesity Status: Chronic (6) Sleep apnea Status: Chronic (7) Diabetes Status: Chronic Specialty Discharge - Follow Up or Referrals Follow up with: Oni Celis MD [Physician] - 2 Weeks (BMP, magnesium, CBC. EKG) Discharge Plan - Discharge Data Disposition: Disch To Home/Self Care Condition at Discharge: Stable Discharge Diet: heart healthy Activity: other (Post cath expectations) Hygiene: no restrictions Weight Bearing at Discharge: other (Post cath expectations) Driving: other (Post cath expectations) Contact your physician if you experience:: fever over 101, Difficulty voiding, Redness or swelling, Nausea/Vomiting, Shortness of breath, Bleeding, pain uncontrolled by pain medications - Discharge Medications New Aspirin EC Tab 81 mg PO DAILY #30 tablet Pantoprazole Tab [Protonix Tab] 40 mg PO DAILY #30 tablet Ticagrelor [Brilinta] 90 mg PO BID #60 tablet amLODIPine [Norvasc] 5 mg PO DAILY #30 tablet Atorvastatin [Lipitor] 40 mg PO BEDTIME #30 tablet Continue Sertraline [Zoloft] 100 mg PO DAILY Montelukast Tab [Singulair Tab] 10 mg PO DAILY Linagliptin [Tradjenta] 5 mg PO DAILY Ergocalciferol (Vitamin D2) [Vitamin D2] 50,000 unit PO Q7D Cyanocobalamin Tab [Vitamin B12 Tab] 500 mcg PO DAILY Probenecid 500 mg PO BID Potassium Chloride 10 meq PO TID Pantoprazole Tab [Protonix Tab] 40 mg PO DAILY metOLazone [Zaroxolyn] 5 mg PO DAILY Nitroglycerin Sl Tab [Nitrostat] 0.4 mg SL Q5M PRN PRN Reason: Chest Pain Levothyroxine Tab [Synthroid Tab] 25 mcg PO DAILY@0700 HYDROcodone/ACETAMIN 10-325 [[place] 10-325] 1 tablet PO Q6H [place]-3 Fatty Acids [Fish Oil] 500 mg PO DAILY Furosemide Tab [Lasix Tab] 80 mg PO DAILY Carvedilol [Coreg] 6.25 mg PO BID Carbidopa/Levodopa 25-100 [Sinemet 25-100] 1 tablet PO BID Discontinued Simvastatin [Zocor] 40 mg PO DAILY amLODIPine [Norvasc] 5 mg PO DAILY Aspirin EC Tab 325 mg PO DAILY - Follow Up or Referral - Forms/Instructions Instructions: Left Heart Catheterization (DC), Heart Healthy Diet (GEN), Coronary Intravascular Stent Placement, Medical Representative (GEN) Exam - Constitutional Vitals: Period Temp Pulse Resp BP Sys/Ambriz Pulse Ox Last 24 Hr 96.8 F-97.6 F 56-75 16-20 116-148/61-101 95-100 Exam: General: [Appears well with no apparent distress.] [Pleasant and cooperative. ] [Appears comfortable.] HEENT: [PERRL, normocephalic, atraumatic. Mucous membranes moist. No jaundice noted. Conjunctiva moist and clear, sclerae anicteric] Neck: No JVD/HJR, no thyromegaly or lymphadenopathy noted. No carotid bruit appreciated Cardiac: [Regular rate and rhythm.] [No murmur rub or gallop.] Lungs: [Clear to auscultation without accessory muscle use to assist the respiratory pattern.] Using oxygen intermittently Abdomen: Soft, bowel sounds normoactive. Nontender and nondistended. No abdominal bruit or thrill noted. No masses noted. Musculoskeletal: No fluid collection. Decreased range of motion is noted. Extremities: No clubbing, cyanosis noted. [ No edema noted.] Right radial access site free of hematoma. Upper extremity pulses 3+. Lower extremity pulses 2+. Capillary refill less than 3 seconds. Skin: No unusual lesions or rashes. No skin breakdown appreciated. Neuro: Awake, alert and oriented 3. Moves all extremities well without hemiparesis or paralysis. No essential tremor is appreciated. Discharge Results Labs on day of discharge: Labs from last 24 hours 08/16/16 08/16/16 08/16/16 07:25 04:08 04:08 WBC RBC Hgb Hct MCV MCH MCHC RDW Plt Count MPV Neut % (Auto) Lymph % (Auto) Bryan % (Auto) Eos % (Auto) Baso % (Auto) Neut # (Auto) Lymph # (Auto) Bryan # (Auto) Eos # (Auto) Baso # (Auto) Immature Gran % Nucleated RBC % Immature Gran # Nucleated RBCs # INR PT Patient/Control Mix D-Dimer, Quantitative Sodium 141 Potassium 3.9 Chloride 104 Carbon Dioxide 28 Anion Gap 12.9 BUN 16 Creatinine 1.40 H GFR Calculation 1119 BUN/Creatinine Ratio 11.00 Glucose 91 POC Glucose 117 H Calculated Osmolality 281.3 Calcium 8.6 Magnesium 1.9 Total Creatine Kinase 152 CK-MB (CK-2) 1.5 Troponin I < 0.015 08/16/16 08/15/16 08/15/16 04:08 15:53 14:53 WBC 4.5 RBC 4.08 Hgb 11.8 L Hct 35.6 L MCV 87.3 MCH 29 MCHC 33.1 RDW 13.7 Plt Count 175 D MPV 9.8 Neut % (Auto) 54.6 Lymph % (Auto) 30.2 Bryan % (Auto) 10.8 Eos % (Auto) 3.5 Baso % (Auto) 0.2 Neut # (Auto) 2.5 Lymph # (Auto) 1.4 Bryan # (Auto) 0.5 Eos # (Auto) 0.2 Baso # (Auto) 0.0 Immature Gran % 0.7 Nucleated RBC % 0.0 Immature Gran # 0.03 Nucleated RBCs # 0.00 INR PT Patient/Control Mix D-Dimer, Quantitative Sodium Potassium Chloride Carbon Dioxide Anion Gap BUN Creatinine GFR Calculation BUN/Creatinine Ratio Glucose POC Glucose 91 Calculated Osmolality Calcium Magnesium Total Creatine Kinase 153 CK-MB (CK-2) 1.2 Troponin I < 0.015 08/15/16 08/15/16 08/15/16 13:28 11:27 10:17 WBC RBC Hgb Hct MCV MCH MCHC RDW Plt Count MPV Neut % (Auto) Lymph % (Auto) Bryan % (Auto) Eos % (Auto) Baso % (Auto) Neut # (Auto) Lymph # (Auto) Bryan # (Auto) Eos # (Auto) Baso # (Auto) Immature Gran % Nucleated RBC % Immature Gran # Nucleated RBCs # INR PT Patient/Control Mix D-Dimer, Quantitative 0.9 Sodium Potassium Chloride Carbon Dioxide Anion Gap BUN Creatinine GFR Calculation BUN/Creatinine Ratio Glucose POC Glucose 76 89 Calculated Osmolality Calcium Magnesium Total Creatine Kinase CK-MB (CK-2) Troponin I 08/15/16 08/15/16 10:17 10:10 WBC RBC Hgb Hct MCV MCH MCHC RDW Plt Count MPV Neut % (Auto) Lymph % (Auto) Bryan % (Auto) Eos % (Auto) Baso % (Auto) Neut # (Auto) Lymph # (Auto) Bryan # (Auto) Eos # (Auto) Baso # (Auto) Immature Gran % Nucleated RBC % Immature Gran # Nucleated RBCs # INR 1.0 PT Patient/Control Mix 10.6 D-Dimer, Quantitative Sodium Potassium Chloride Carbon Dioxide Anion Gap BUN Creatinine GFR Calculation BUN/Creatinine Ratio Glucose POC Glucose Calculated Osmolality Calcium Magnesium Total Creatine Kinase 173 CK-MB (CK-2) 1.4 Troponin I < 0.015 - Imaging and Cardiology Cardiology Procedure: report reviewed by me Procedure: Chest x-ray: report reviewed by me DS: Provider Date of admission: 08/14/16 18:38 Primary care physician: Ale Cloud M.D. Attending physician on admission: Momo Uribe Consults: 08/15/16 14:15 Consult to Cardiac Rehabilitation [CONS] Routine Reason for Cardiac Rehabilitation: Appt Out Pt Cardiac Rehab Consult Comment: cad stent Discharging clinician: Lyndsay Dockery NP Expected date of discharge: 08/16/16
== END 2016-08-16 11:11 | disposition home or self-care (01) ==
LOC: N.TELES
PROVIDERS: ADMIT Internal Medicine Cardiovascular Disease; ATTEND Internal Medicine Cardiovascular Disease

== ENCOUNTER 2016-08-21 20:08 | Inpatient (IN) ==
--- NOTE | 2016-08-21 20:32 | Emergency Department Note ---
Arrival - Arrival Chief Complaint: Chest Pain Stated Complaint: CP ED Nursing Triage Note: Patient arrives to ED via EMS from home with c/o CP that started this morning with assciated weakness, jaw pain, and nausea. patient had a stent placed last Wed by Dr Nava. patient states her pain is off and on after EMS gave her fentayl/zofran/nitro/asa en route. 12 lead by EMS was normal sinus rhythm. Mode of Arrival: Stretcher Limitations: No Limitations Source: Patient Time Seen by Provider: 08/21/16 20:27 - History of Present Illness HPI Narrative: This 59-year-old black female presents with complaints of onset of left-sided chest pain, shortness of breath, garbled speech, left facial droop and left sided weakness approximately 2 hours ago. Patient denies nausea, vomiting, headache, or vision changes. Currently her speech is slightly garbled but is obvious she is having difficulty forming sentences. Family members state that concomitant with the chest pain was onset of changes in her verbal capacity. Of note she was given fentanyl, Zofran, nitroglycerin, and aspirin in route. She had a stent placed by Dr. Nava 1 week ago. Currently she is awake, alert, and oriented 3. And no acute medical distress at this point in time. Onset (ago): hour(s) (Patient presents 2 hours post onset of symptoms) Date of Last Menstrual Period: HYST Allergies/Adverse Reactions: Allergies Allergy/AdvReac Type Severity Reaction Status Date / Time meperidine [From Demerol] Allergy Unknown/Unable Verified 08/21/16 20:15 to obtain morphine Allergy Unknown/Unable Verified 08/21/16 20:15 to obtain Home Medications: Home Medications Medication Instructions Recorded Confirmed Type Carbidopa/Levodopa 25-100 [Sinemet 1 tablet PO BID 11/15/15 11/15/15 History 25-100] Carvedilol [Coreg] 6.25 mg PO BID 11/15/15 11/15/15 History Cyanocobalamin Tab [Vitamin B12 500 mcg PO DAILY 11/15/15 11/15/15 History Tab] Ergocalciferol (Vitamin D2) 50,000 unit PO Q7D 11/15/15 11/15/15 History [Vitamin D2] Furosemide Tab [Lasix Tab] 80 mg PO DAILY 11/15/15 11/15/15 History HYDROcodone/ACETAMIN 10-325 [[place] 1 tablet PO Q6H 11/15/15 11/15/15 History 10-325] Levothyroxine Tab [Synthroid Tab] 25 mcg PO DAILY@0700 11/15/15 11/15/15 History Linagliptin [Tradjenta] 5 mg PO DAILY 11/15/15 11/15/15 History Montelukast Tab [Singulair Tab] 10 mg PO DAILY 11/15/15 11/15/15 History Nitroglycerin Sl Tab [Nitrostat] 0.4 mg SL Q5M PRN 11/15/15 11/15/15 History [place]-3 Fatty Acids [Fish Oil] 500 mg PO DAILY 11/15/15 11/15/15 History Pantoprazole Tab [Protonix Tab] 40 mg PO DAILY 11/15/15 11/15/15 History Potassium Chloride 10 meq PO TID 11/15/15 11/15/15 History Probenecid 500 mg PO BID 11/15/15 11/15/15 History Sertraline [Zoloft] 100 mg PO DAILY 11/15/15 11/15/15 History metOLazone [Zaroxolyn] 5 mg PO DAILY 11/15/15 11/15/15 History Aspirin EC Tab 81 mg PO DAILY #30 tablet 08/16/16 Rx Atorvastatin [Lipitor] 40 mg PO BEDTIME #30 tablet 08/16/16 Rx Pantoprazole Tab [Protonix Tab] 40 mg PO DAILY #30 tablet 08/16/16 Rx Ticagrelor [Brilinta] 90 mg PO BID #60 tablet 08/16/16 Rx amLODIPine [Norvasc] 5 mg PO DAILY #30 tablet 08/16/16 Rx Review of System - Review of System 12 point system: reviewed and no additional remarkable complaints except as stated - Review of System Constitutional: Present: as per HPI Respiratory: Present: as per HPI Cardiovascular: Present: as per HPI Gastrointestinal: Present: as per HPI Neurological: Present: as per HPI Medical,Surgical,& Family Hx - Medical History Cardio: History of: Hypertension, Cardiovascular Problems (STENTS) Neurology: History of: Migraine, TIA No history of: Seizures HEENT: History of: Ear Problem Endocrine: History of: Diabetes Mellitus (NIDDM), Dyslipidemia Respiratory: History of: Asthma, Obstructive Sleep Apnea Genitourinary: No history of: Kidney Stones Gastrointestinal: History of: GERD Musculoskeletal: History of: Back/Neck Problems Hematology: History of: Clotting Problems Reproductive: No history of: Breast Cancer - Surgical History Cardiac Surgeries: Sugical HX of: Cardiac Catheterization Neurologic Surgeries: Patient denies: Neurologic Surgery HEENT Surgeries: Surgical HX of: Tonsilectomy & Adenoidectomy Abdominal Surgeries: Surgical HX of: Colonoscopy, EGD Patient denies: Appendectomy, Cholecystectomy Reproductive Surgeries: Surgical HX of;: Hysterectomy Orthopedic Surgeries: Surgical HX of;: Total Knee Replacement (RIGHT) - Social History Smoking Status: Never smoker Frequency of Alcohol Use: None Type of Drug Use: None Exam Physical Examination: GENERAL: Obese black female in no acute distress. HEENT: Normocephalic. No trauma. Moist mucous membranes. EOMI. PERRLA. ENT NML NECK: Supple. No adenopathy. CARDIAC: Regular. No murmurs. Heart rate 78 CHEST: Clear to auscultation. No respiratory distress. O2 sat 94% ABDOMEN: Soft. Nontender. Active bowel sounds. EXTREMITIES: No trauma. Normal ROM. No pedal edema. SKIN: No diaphoresis. No rash. NEURO: Alert. Left facial droop. Slurred speech with difficulty forming sentences. 4 out of 5 left sided weakness compared to 5 out of 5 strength on the right Vital Signs: Vital Signs Temperature 97.7 F 08/21/16 20:08 Pulse Rate 78 08/21/16 20:08 Respiratory Rate 20 08/21/16 21:01 Blood Pressure 137/83 08/21/16 20:08 O2 Sat by Pulse Oximetry 94 L 08/21/16 20:08 Course - Reevaluation(s) Reevaluation #1: Discussed with patient and family the need for hospitalization given her evidence of acute stroke. - Consultations Consultation #1: Discussed with Dr. Kinney who felt, given her recent cath and stenting, that she would not be a candidate for lytic therapy. Consultation #2: Discussed with Dr. march, cardiology, who will follow in consultation. Consultation #3: Discussed with the hospitalist service who will admit for further evaluation therapy. Results - Labs CBC & BMP: 08/21/16 20:34 08/21/16 20:34 Labs: I have reviewed the laboratory and noted the negative cardiac's - Impressions EKG: Sinus rhythm at 70 with normal NV interval and QRS duration. Normal ST segments. Normal EKG. - Diagnostic Findings Procedure: Chest x-ray: image reviewed by me, report reviewed by me (No acute disease), CT: image reviewed by me, report reviewed by me (Head: No acute injury ) Disposition Clinical Impression: CVA with left weakness, Recent cardiac stenting, Hypertension Case discussed with: patient, patient's family Disposition: Still a Patient Condition: Guarded Time of Disposition: 22:14
--- NOTE | 2016-08-21 20:58 | CT Report ---
CT brain Indication: Mental status changes Comparison: None available Technique: Axial CT imaging of the brain is performed without contrast with 3 mm increments. Findings: No evidence of hemorrhage, mass mass effect midline shift or acute infarct seen. The brain parenchyma attenuation and differentiation appears within normal limits. The ventricles and cisterns are normal in caliber. No cranial or skull base abnormality is identified. Impression: No evidence of abnormality demonstrated. This CT exam was performed using one or more the following dose reduction techniques: Automated exposure control, adjustment of the MA and/or KV according to patient size, or use of iterative reconstruction technique. PROCEDURE INTERPRETED AT [facility] DEPARTMENT OF RADIOLOGY Final Report Signed by: Dr. Brendan Rosas
--- NOTE | 2016-08-21 20:59 | XRay Report ---
XR chest 1V portable Indication: Altered mental status Comparison: 14 Aug 2016 Findings: The heart and mediastinum are stable in size and configuration. The pulmonary vascularity is normal in caliber. No lung infiltrates, effusions, pneumothorax or other abnormality is demonstrated. Impression: No acute cardiopulmonary disease. PROCEDURE INTERPRETED AT [facility] DEPARTMENT OF RADIOLOGY Final Report Signed by: Dr. Brendan Rosas
[2016-08-21 21:17] LABS: Basophils % 0.2 % (0.0-0.8); Eosinophils # 0.2 10*3/uL (0.0-0.87); Hematocrit 35.5 VOL% (35.7-47.0); Hemoglobin 11.8 GM/DL (12.0-16.0); Immature Granulocytes % 0.4 %; Immature Granulocytes Absolute 0.02 #; Lymphocytes # 1.4 10*3/uL (1.4-4.0); Mean Corpuscular HGB Conc 33.2 GM/DL (32-36); Mean Corpuscular Hemoglobin 29 PG (27-34); Mean Corpuscular Volume 87.2 FL (87-102); Mean Platelet Volume 9.6 FL (9.6-12.0); Monocytes # 0.5 10*3/uL (0.11-0.8); Monocytes % 9.4 % (1.7-12.7); Neutrophils # 2.9 10*3/uL (1.4-7.4); Platelet Count 174 T/CUMM (130-400); Red Blood Count 4.07 MC/CUMM (3.8-5.5); Red Cell Distribution Width 13.5 % (9.3-17.3)
[2016-08-21 21:28] LABS: PT Patient Result 10.8 SECS; Partial Thromboplastin Time 26.8 SECS (0-40)
[2016-08-21 21:37] LABS: Alanine Aminotransferase 33 U/L (13-56); Albumin 3.5 G/DL (3.4-5.0); Alkaline Phosphatase 100 U/L (45-117); Aspartate Amino Transferase 34 U/L (0-37); Blood Urea Nitrogen 17 MG/DL (7-18); Calcium 9.1 MG/DL (8.5-10.1); Glucose 128 MG/DL (74-106); Osmolality,Calculated 284.3 MOS/KG (273-304); Potassium 4.1 MMOL/L (3.5-5.1); Sodium 141 MMOL/L (136-145); Total Protein 7.1 G/DL (6.4-8.3); Troponin I Only < 0.015 NG/ML (0.00-0.045)
[2016-08-21 21:51] LABS: Barbiturates Screen,Urine Negative (Negative); Benzodiazepines Screen,Urine Negative (Negative); Cannabinoid Screen,Urine Negative (Negative); Opiate Screen,Urine Negative (Negative); Phencyclidine Screen,Urine Negative (Negative)
[2016-08-21 21:58] LABS: Apearance,Urine CLEAR (Clear); Bilirubin,Urine Negative (Negative); Blood, Urine Negative (Negative); Glucose,Urine (UA) Negative (Negative); Hyaline Casts,Urine 3 /LPF (0-3); Ketones,Urine Negative (Negative); Mucus,Urine Occasional /LPF (Occasional); Nitrite,Urine Negative (Negative); Protein,Urine Negative; RBC,Urine 1 /HPF (0-4); Squamous Epithelial Cell,Urine Occasional /HPF (0-10); Urine Color Yellow (Yellow); Urine Specific Gravity 1.013 (1.001-1.035); Urine Urobilinogen < 2.0 EU/DL (0.2-1.0)
[2016-08-21] MEDS ORDERED: ACETAMINOPHEN 325 MG TABLET PO PRN (22:09)
[2016-08-21] MEDS ORDERED: ONDANSETRON 4 MG/2 ML VIAL IV PRN (22:09)
[2016-08-21] MEDS ORDERED: LABETALOL 20 MG/4 ML SYRINGE IV PRN (22:09)
[2016-08-21] MEDS ORDERED: GLUCAGON 1 MG VIAL IM PRN (22:17)
[2016-08-21] MEDS ORDERED: DEXTROSE 50% 25 GM/50 ML VIAL IV PRN (22:17)
--- NOTE | 2016-08-21 22:22 | Hospitalist History & Physical ---
Assessment and Plan (1) Acute ischemic stroke Status: Acute Assessment and plan: Admit to ICU Consult neurology Consult cardiology Physical therapy, Occupational Therapy, speech therapy evaluation Lipid panel drawn last week reviewed. Continue statin. No TPA given in ER after discussion with neurology on-call given her recent left heart cath less than 1 week ago with LAD stent placement. Continue Brilinta and aspirin Monitor and control blood pressure and blood sugar MRI, carotid ultrasound, echocardiogram in a.m. Current Visit: Yes (2) CAD (coronary artery disease) Status: Chronic Assessment and plan: Consult cardiology. Status post recent stent of the mid LAD with a 2.25 x 16 drug-eluting stent. Continue Brilinta and aspirin. Current Visit: No Qualifiers: Coronary Disease-Associated Artery/Lesion type: [place] artery [place] vs. transplanted heart: [place] heart Associated angina: with unstable angina Qualified Code(s): I25.110 - Atherosclerotic heart disease of [place] coronary artery with unstable angina pectoris (3) Hypertension Status: Chronic Current Visit: No Qualifiers: Hypertension type: essential hypertension Qualified Code(s): I10 - Essential (primary) hypertension (4) Dyslipidemia Status: Chronic Current Visit: No (5) Sleep apnea Status: Chronic Current Visit: No Qualifiers: Sleep apnea type: unspecified type Qualified Code(s): G47.30 - Sleep apnea , unspecified (6) Diabetes Status: Chronic Current Visit: No Qualifiers: Diabetes mellitus type: type 2 Diabetes mellitus complication status: without complication Diabetes mellitus long term care social worker insulin use: without halfway use Qualified Code(s): E11.9 - Type 2 diabetes mellitus without complications History of Present Illness Chief complaint: Left sided weakness and slurred speech History of present illness: Ms. Doe is a 61 year old female with a hx of CAD and recent C with stent placement on 08/15/16. She presented to the ED [facility] with acute onset of left- sided weakness and slurred speech at 6 PM. Upon further questioning the patient reports that she has had frequent episodes of slurred speech at home over the last several months. She also describes periods of generalized weakness that improved spontaneously. She reports that her symptoms today are worse than previous episodes. She gives a history of previous TIAs in 2009 and 2014. Today she describes acute onset left-sided weakness involving the upper and lower extremity with associated left chest pain that radiates into her neck and shoulder and into her jaw. She describes the symptoms in the neck and jaw tightness. She also had numbness and tingling in her hand. Upon arrival to the emergency department the patient was found to have significant weakness that is on the left side of her body both upper and lower extremity. She also had slurred speech and slowed speech. The patient was able to compose her words but had difficulty getting them out. She appears to understand verbal conversation well. She reports difference in sensation between the right and left upper and lower extremity. Her daughter is at the bedside. The patient is on aspirin and Brilinta after her left heart cath with stent placement in the mid LAD last week. I was asked to admit the patient to the hospitalist service for evaluation of her acute left-sided weakness and slurred speech to rule out stroke versus TIA. Cardiology and neurology were contacted by the ER physician. Past medical history significant for Hypertension, coronary artery disease, hyperlipidemia, diabetes, morbid obesity, arthritis, thyroid disease. She is a full code. Primary care physician Dr. Cloud in [place] nnps Dr. Celis. GI Dr. Phipps. Her home medications were reviewed and reconciled. Home Medications Medication Instructions Recorded Confirmed Type Carbidopa/Levodopa 25-100 [Sinemet 1 tablet PO BID 11/15/15 11/15/15 History 25-100] Carvedilol [Coreg] 6.25 mg PO BID 11/15/15 11/15/15 History Cyanocobalamin Tab [Vitamin B12 500 mcg PO DAILY 11/15/15 11/15/15 History Tab] Ergocalciferol (Vitamin D2) 50,000 unit PO Q7D 11/15/15 11/15/15 History [Vitamin D2] Furosemide Tab [Lasix Tab] 80 mg PO DAILY 11/15/15 11/15/15 History HYDROcodone/ACETAMIN 10-325 [[place] 1 tablet PO Q6H 11/15/15 11/15/15 History 10-325] Levothyroxine Tab [Synthroid Tab] 25 mcg PO DAILY@0700 11/15/15 11/15/15 History Linagliptin [Tradjenta] 5 mg PO DAILY 11/15/15 11/15/15 History Montelukast Tab [Singulair Tab] 10 mg PO DAILY 11/15/15 11/15/15 History Nitroglycerin Sl Tab [Nitrostat] 0.4 mg SL Q5M PRN 11/15/15 11/15/15 History [place]-3 Fatty Acids [Fish Oil] 500 mg PO DAILY 11/15/15 11/15/15 History Pantoprazole Tab [Protonix Tab] 40 mg PO DAILY 11/15/15 11/15/15 History Potassium Chloride 10 meq PO TID 11/15/15 11/15/15 History Probenecid 500 mg PO BID 11/15/15 11/15/15 History Sertraline [Zoloft] 100 mg PO DAILY 11/15/15 11/15/15 History metOLazone [Zaroxolyn] 5 mg PO DAILY 11/15/15 11/15/15 History Aspirin EC Tab 81 mg PO DAILY #30 tablet 08/16/16 Rx Atorvastatin [Lipitor] 40 mg PO BEDTIME #30 tablet 08/16/16 Rx Pantoprazole Tab [Protonix Tab] 40 mg PO DAILY #30 tablet 08/16/16 Rx Ticagrelor [Brilinta] 90 mg PO BID #60 tablet 08/16/16 Rx amLODIPine [Norvasc] 5 mg PO DAILY #30 tablet 08/16/16 Rx Allergies Allergy/AdvReac Type Severity Reaction Status Date / Time meperidine [From Demerol] Allergy Unknown/Unable Verified 08/21/16 20:15 to obtain morphine Allergy Unknown/Unable Verified 08/21/16 20:15 to obtain Medical,Surgical,& Family Hx - Medical History Cardio: History of: CAD, Hypertension, Cardiovascular Problems (STENTS) Neurology: History of: Migraine, TIA No history of: Seizures HEENT: History of: Ear Problem Endocrine: History of: Diabetes Mellitus (NIDDM), Dyslipidemia Respiratory: History of: Asthma, Obstructive Sleep Apnea Genitourinary: No history of: Kidney Stones Gastrointestinal: History of: GERD Musculoskeletal: History of: Back/Neck Problems Hematology: History of: Clotting Problems Reproductive: No history of: Breast Cancer - Surgical History Cardiac Surgeries: Sugical HX of: Cardiac Catheterization Neurologic Surgeries: Patient denies: Neurologic Surgery HEENT Surgeries: Surgical HX of: Tonsilectomy & Adenoidectomy Abdominal Surgeries: Surgical HX of: Colonoscopy, EGD Patient denies: Appendectomy, Cholecystectomy Reproductive Surgeries: Surgical HX of;: Section, Hysterectomy Orthopedic Surgeries: Surgical HX of;: Total Knee Replacement (RIGHT) - Family History Family History: Reports;: Family Diabetes, Family Hypertension - Social History Smoking Status: Never smoker Frequency of Alcohol Use: None Type of Drug Use: None Marital Status: Lives With:: Alone Functional capacity: independent ambulation 12 point system: reviewed and no additional remarkable complaints except as stated - Neurological Neurological: Present: as per HPI, abnormal speech, dizziness Exam - Constitutional Vitals: Period Temp Pulse Resp BP Sys/Ambriz Pulse Ox Last 24 Hr 97.7 F-97.7 F 78-78 18-20 137-137/83-83 94-94 Exam: Constitutional System: Mild distress. No tremulousness. Morbidly obese. Patient is alert awake and oriented 3. Head: Normocephalic, atraumatic. Ears, Nose and Throat System: No pain or tenderness. No epistaxis or discharge Eyes System: Pupils equal, round, and reactive. Extraocular muscles intact. Neck: Supple, without adenopathy, No jugular venous distention. Evidence of prior surgery apparent. Respiratory System: Chest clear to auscultation. Cardiovascular System: Heart with regular rate and rhythm. No murmur. GI System: Abdomen soft, nontender. Normo active bowel sounds present. Musculoskeletal System: limbs with no pedal edema. Full distal pulses. Neurological System: Left upper and lower extremity weakness noted. Patient is able to oppose gravity. Breakfast Hostess strength is reduced secondary to arthritis. Left upper extremity 2/5 left lower extremity 2/5 right upper and lower extremity 4/ 5. Proprioception intact with altered sensation left compared to right. No facial droop. No tongue deviation. Speech is slowed but articulate. Cranial nerves II through XII are grossly intact. Psychiatric System: Conversation is rational Skin/dermatology: No lesions or rashes or signs of trauma. Results - Labs CBC & BMP: 08/21/16 20:34 08/21/16 20:34 Lab Results: I have reviewed the past 24 hour labs - Diagnostic Findings Procedure: Chest x-ray: image reviewed by me, report reviewed by me, CT: image reviewed by me, report reviewed by me Quality Measures - Stroke Onset of Symptoms Date: 08/21/16 Symptom Onset Unknown: No
[2016-08-22] MEDS: ENOXAPARIN 40 MG/0.4 ML SYRINGE SUBCUT SCH ×2 (00:07→23:44)
[2016-08-22] MEDS: SODIUM CHLORIDE 0.9% 1,000 ML IV SCH ×3 (00:07→23:45)
[2016-08-22 06:04] LABS: Basophils % 0.5 % (0.0-0.8); Eosinophils # 0.2 10*3/uL (0.0-0.87); Eosinophils % 4.4 % (0.00-10.9); Hematocrit 32.2 VOL% (35.7-47.0); Hemoglobin 10.5 GM/DL (12.0-16.0); Immature Granulocytes % 0.5 %; Immature Granulocytes Absolute 0.02 #; Lymphocytes # 1.4 10*3/uL (1.4-4.0); Lymphocytes % 34.9 % (21.3-54.2); Mean Corpuscular HGB Conc 32.6 GM/DL (32-36); Mean Corpuscular Hemoglobin 29 PG (27-34); Mean Corpuscular Volume 88.2 FL (87-102); Mean Platelet Volume 9.3 FL (9.6-12.0); Monocytes # 0.5 10*3/uL (0.11-0.8); Neutrophils % 47.7 % (38.7-73.9); Platelet Count 153 T/CUMM (130-400); Red Blood Count 3.65 MC/CUMM (3.8-5.5); Red Cell Distribution Width 13.6 % (9.3-17.3); White Blood Count 4.1 T/CUMM (4-12)
[2016-08-22 06:33] LABS: Albumin 3.1 G/DL (3.4-5.0); Bilirubin,Total 0.4 MG/DL (0.2-1.0); Calcium 8.3 MG/DL (8.5-10.1); Magnesium 2.1 MG/DL (1.8-2.4); Osmolality,Calculated 287.8 MOS/KG (273-304); Potassium 4.2 MMOL/L (3.5-5.1)
--- NOTE | 2016-08-22 06:48 | Hospitalist Progress Note ---
Assessment and Plan (1) Acute ischemic stroke Status: Acute Assessment and plan: Neurological assessment no better or worse than on admission. Neurology and cardiology have been consulted. She remains NPO. Awaiting Pt, OT and speech therapy evaluation. MRI, carotid ultrasound and echocardiogram scheduled for today. Will continue current plan of care. Current Visit: Yes (2) CAD (coronary artery disease) Status: Chronic Assessment and plan: S/P recent stent of the mid LAD with a 2.25 x 16 [place]. Continue Brilinta and aspirin. Cardiology has been consulted. Current Visit: No Qualifiers: Coronary Disease-Associated Artery/Lesion type: [place] artery [place] vs. transplanted heart: [place] heart Associated angina: with unstable angina Qualified Code(s): I25.110 - Atherosclerotic heart disease of [place] coronary artery with unstable angina pectoris (3) Diabetes Status: Chronic Assessment and plan: Hemoglobin A1c 5.4. Continue to monitor Accu-cheks ACHS and SSI per protocol. Current Visit: No Qualifiers: Diabetes mellitus type: type 2 Diabetes mellitus complication status: without complication Diabetes mellitus retirement insulin use: without intermediate accountant use Qualified Code(s): E11.9 - Type 2 diabetes mellitus without complications (4) Hypertension Status: Chronic Assessment and plan: Well controlled. Continue POC. Current Visit: No Qualifiers: Hypertension type: essential hypertension Qualified Code(s): I10 - Essential (primary) hypertension (5) Dyslipidemia Status: Chronic Current Visit: No (6) Sleep apnea Status: Chronic Current Visit: No Qualifiers: Sleep apnea type: unspecified type Qualified Code(s): G47.30 - Sleep apnea , unspecified Hospitalist: Subjective Interval history: Patient seen and examined today. She reports that she rested well overnight. She did complain of a headache overnight for which we gave [place]. Speech is still delayed, however she comprehends well. There is still a significant difference in strength bilaterally with marked weakness in both upper and lower left extremities. She is scheduled to have an MRI today with neurology consultation. She is also scheduled to have a carotid ultrasound and echocardiogram with cardiology consultation. We will await the results of these exams and appreciate the recommendations of the consults. Exam - Constitutional Vitals: Period Temp Pulse Resp BP Sys/Ambriz Pulse Ox Last 24 Hr 98.1 F 59-73 13-18 122-142/64-85 95-98 Exam: General appearance: morbidly obese, mild distress - Head Head exam: Present: normocephalic, atraumatic - Eye Eye exam: Present: EOMI. Absent: conjunctival injection, nystagmus Pupils: Present: JUANY, normal accommodation - ENT ENT exam: Present: normal exam, normal external ear exam - Neck Neck exam: Present: normal inspection. Absent: lymphadenopathy, tenderness, thyromegaly - Respiratory Respiratory exam: Present: clear to auscultation bilaterally. Absent: rales, rhonchi, wheezes - Cardiovascular Cardiovascular exam: Present: regular rate and rhythm. Absent: carotid bruit, gallop, rubs - GI/Abdominal GI/Abdominal exam: Present: normal bowel sounds. Absent: ascites, distended, mass - Extremities Exam Extremities exam: Present: normal inspection, normal capillary refill. Absent: edema - Back Exam Back exam: Absent: CVA tenderness (L), CVA tenderness (R) - Neurological Exam Neurological exam: Alert, oriented X3. Left upper and lower extremity weakness noted. Patient is able to oppose gravity. Tube Former Operator strength is reduced secondary to arthritis. Left upper extremity 2/5 left lower extremity 2/5 right upper and lower extremity 4/5. Proprioception intact with altered sensation left compared to right. No facial droop. No tongue deviation. Speech is slowed but articulate. Cranial nerves II through XII are grossly intact. - Psychiatric Psychiatric exam: Present: normal affect, normal mood, conversation is rational - Skin Skin exam: Present: normal color, warm, dry Results - Labs CBC & BMP: 08/22/16 05:52 08/22/16 05:52 Lab Results: I have reviewed the past 24 hour labs Quality Measures - Stroke Onset of Symptoms Date: 08/21/16 Presenting Symptoms: On examination - dysphasia - motor Symptom Onset Unknown: No
--- NOTE | 2016-08-22 07:36 | Ultrasound Report ---
Exam: US carotid duplex BI Date: 08/22/2016 4:00 AM Indication: CVA stroke symptoms Findings: Grayscale color flow analysis and spectral analysis imaging was performed with image stored and captured. Right Flow velocities centimeters per second Common carotid artery: 70 Proximal ICA: 63 Distal ICA: 48 External carotid artery: 59 Vertebral artery: 70 ICA/CCA ratio: 0.9 Measurements in millimeters Distal ICA: 4.7 Left: Flow velocities centimeters per second Common carotid artery: 44 Proximal ICA: 31 Distal ICA: 65 External carotid artery: 42 Vertebral artery: 44 ICA/CCA ratio: 1.5 Measurements in millimeters Distal ICA: 6.5 No significant plaque with mild intimal hyperplasia present. No spectral broadening with normal color flow Impression: 1. 0-15% stenosis bilaterally Today studies were performed utilizing indirect NASCET criteria The ultrasound images were stored and captured PROCEDURE INTERPRETED AT [facility] DEPARTMENT OF RADIOLOGY Final Report Signed by: Dr. Kota Nieto
[2016-08-22] MEDS ORDERED: NITROGLYCERIN SL 0.4 MG TABLET SL PRN (08:23)
--- NOTE | 2016-08-22 08:25 | EKG Report ---
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
[2016-08-22] MEDS ORDERED: ERGOCALCIFEROL 50,000 UNIT CAPSULE PO SCH (08:30)
[2016-08-22] MEDS: INSULIN LISPRO 100 UNIT/ML SUBCUT SCH ×4 (08:53→21:30)
[2016-08-22] MEDS ORDERED: CARBIDOPA/LEVODOPA 25-100 MG TABLET PO SCH (09:00)
[2016-08-22] MEDS ORDERED: amLODIPine 5 MG TABLET PO SCH (09:00)
[2016-08-22] MEDS: PANTOPRAZOLE 40 MG TABLET PO SCH (09:21)
[2016-08-22] MEDS: ASPIRIN EC 81 MG TABLET PO SCH (09:21)
[2016-08-22] MEDS: SERTRALINE 100 MG TABLET PO SCH (09:22)
[2016-08-22] MEDS: sitaGLIPtin 100 MG TABLET PO SCH (09:23)
[2016-08-22] MEDS: CARVEDILOL 6.25 MG TABLET PO SCH ×2 (09:23→21:26)
[2016-08-22] MEDS: FUROSEMIDE 80 MG TABLET PO SCH (09:23)
[2016-08-22] MEDS: GABAPENTIN 300 MG CAPSULE PO SCH ×2 (09:23→21:27)
[2016-08-22] MEDS: OMEGA 3 ACID ETHYL ESTERS 1 GM CAPSULE PO SCH (09:24)
[2016-08-22] MEDS: TICAGRELOR 90 MG TABLET PO SCH ×2 (09:24→21:27)
[2016-08-22] MEDS: CYANOCOBALAMIN 500 MCG TABLET PO SCH (09:24)
[2016-08-22] MEDS: POTASSIUM CHLORIDE 10 MEQ TABLET PO SCH ×3 (09:30→21:27)
--- NOTE | 2016-08-22 10:05 | Cardiology Consult Note ---
<Lyndsay Dockery E - Last Filed: 08/22/16 09:46> Assessment and Plan - Time spent with patient Time spent with patient: Greater than 30 minutes (1) Acute ischemic stroke Status: Acute Assessment and plan: SEE PLAN OF CARE LISTED BELOW Current Visit: Yes (2) CAD (coronary artery disease) Status: Chronic Assessment and plan: SEE PLAN OF CARE LISTED BELOW Current Visit: No Qualifiers: Coronary Disease-Associated Artery/Lesion type: [place] artery [place] vs. transplanted heart: [place] heart Associated angina: with unstable angina Qualified Code(s): I25.110 - Atherosclerotic heart disease of [place] coronary artery with unstable angina pectoris (3) Diabetes Status: Chronic Assessment and plan: SEE PLAN OF CARE LISTED BELOW Current Visit: No Qualifiers: Diabetes mellitus type: type 2 Diabetes mellitus complication status: without complication Diabetes mellitus penitentiary insulin use: without keno terminal operator use Qualified Code(s): E11.9 - Type 2 diabetes mellitus without complications (4) Dyslipidemia Status: Chronic Assessment and plan: SEE PLAN OF CARE LISTED BELOW Current Visit: No (5) Hypertension Status: Chronic Assessment and plan: SEE PLAN OF CARE LISTED BELOW Current Visit: No Qualifiers: Hypertension type: essential hypertension Qualified Code(s): I10 - Essential (primary) hypertension (6) Obesity Status: Chronic Assessment and plan: SEE PLAN OF CARE LISTED BELOW Current Visit: No (7) Sleep apnea Status: Chronic Assessment and plan: SEE PLAN OF CARE LISTED BELOW Current Visit: No Qualifiers: Sleep apnea type: unspecified type Qualified Code(s): G47.30 - Sleep apnea , unspecified (8) Chest pain Status: Acute Assessment and plan: SEE PLAN OF CARE LISTED BELOW Current Visit: No History of Present Illness - Data of Consult Patient: known to practice within the last 3 years Consult date: 08/22/16 Requesting Physician: Jean Marie Mancilla - Consult Narrative Reason for consult: CVA VERSUS TIA, RECENT LHC, CHEST PAIN 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 CELIS PATIENT IS BEING SEEN IN THE ICU Ms. Doe, 61BF, routinely followed by Dr. Celis. Risk factors include: Known coronary artery disease, hypertension, dyslipidemia, obesity, sedentary lifestyle. Patient was admitted directly from Dr. Celis's office August 14, 2016 with complaints of chest pain concerning for angina. Patient underwent elective cardiac catheterization August 15, 2016, performed by Dr. Nava, requiring stent to the distal LAD with MORENO. (See cardiac catheterization for additional information from [facility] report). She tolerated the procedure well without complication was discharged home in stable condition. She continues to take aspirin and Brilinta without fail. Patient return to the emergency department at [facility] last evening with complaints of sudden onset of garbled speech, left facial droop and left-sided weakness which started approximately 2 hours prior to admission. Patient has undergone CT of the head which showed no acute abnormality and is scheduled for an MRI of the brain today. Carotid ultrasound reveals no significant stenosis. Telemetry reveals no arrhythmia. Neurology has been consulted. This morning, patient's garbled speech has much improved as has her left upper and lower extremity weakness. Patient reports that she continues to have left chest pain. She states it did not improve for 1 or 2 days after the cardiac catheterization but has now recurred. She is exquisitely tender to touch across the chest wall but believes this is not the same type of discomfort she has been feeling. She describes the chest discomfort as a tightness in the mid and left chest area without radiation. She states she does become more short of breath with the discomfort. This is occurring primarily with exertion and relieved with rest. She is unable to write the discomfort on a scale of 1-10. Cardiac biomarkers are negative. EKG is unremarkable and unchanged from prior EKG. At this point, we will continue with aspirin and Brilinta without fail. We will monitor her blood pressure closely. We will continue to cycle her cardiac biomarkers and EKG. She is scheduled to undergo an MRI today. Will add long- acting nitrate to her medication regimen and consider Ranexa prior to discharge. We will stop her Norvasc starting tomorrow and incorporate an JOSY inhibitor monitoring her creatinine closely. Will further discuss with Dr. Celis additional recommendations. ASSESSMENT/PLAN: 1. [id number] - MRI scheduled for today 2. KNOWN CAD S/P PCI LAD - continue ASA/Brilinta, Betablocker and lipid lowering agent. Stopping Norvasc today and start Lisinopril in AM. 3. HYPERTENSION - adjust medications accordingly during the hospital stay 4. DYSLIPIDEMIA - no need to repeat FLP, LDL 90 last admission and recently increased Lipitor to 40 mg each evening. 5. DIABETES -continue sliding scale insulin. 6 LEONILA - Will ask family to bring sleep device during the hospital stay. 7. CHEST PAIN -some of the chest discomfort is musculoskeletal in nature. However, she does have complaints concerning for angina that her cardiac biomarkers are negative and EKG is unchanged from prior EKG. Will add a long-acting nitrate today and consider Ranexa prior to discharge. CC: Jean Marie Mancilla MD - Home Medications and Allergies Home Medications: Home Medications Medication Instructions Recorded Confirmed Type Carbidopa/Levodopa 25-100 [Sinemet 1 tablet PO BID 11/15/15 08/21/16 History 25-100] Carvedilol [Coreg] 6.25 mg PO BID 11/15/15 08/21/16 History Cyanocobalamin Tab [Vitamin B12 500 mcg PO DAILY 11/15/15 08/21/16 History Tab] Ergocalciferol (Vitamin D2) 50,000 unit PO Q7D 11/15/15 08/21/16 History [Vitamin D2] Furosemide Tab [Lasix Tab] 80 mg PO DAILY 11/15/15 08/21/16 History Levothyroxine Tab [Synthroid Tab] 25 mcg PO DAILY@0700 11/15/15 08/21/16 History Linagliptin [Tradjenta] 5 mg PO DAILY 11/15/15 08/21/16 History Nitroglycerin Sl Tab [Nitrostat] 0.4 mg SL Q5M PRN 11/15/15 08/21/16 History [place]-3 Fatty Acids [Fish Oil] 500 mg PO DAILY 11/15/15 08/21/16 History Pantoprazole Tab [Protonix Tab] 40 mg PO DAILY 11/15/15 08/21/16 History Potassium Chloride 10 meq PO TID 11/15/15 08/21/16 History Probenecid 500 mg PO BID 11/15/15 08/21/16 History Sertraline [Zoloft] 100 mg PO DAILY 11/15/15 08/21/16 History Aspirin EC Tab 81 mg PO DAILY #30 tablet 08/16/16 08/21/16 Rx Atorvastatin [Lipitor] 40 mg PO BEDTIME #30 tablet 08/16/16 08/21/16 Rx Ticagrelor [Brilinta] 90 mg PO BID #60 tablet 08/16/16 08/21/16 Rx amLODIPine [Norvasc] 5 mg PO DAILY #30 tablet 08/16/16 08/21/16 Rx Gabapentin [Gabapentin] 1 capsule PO BID 08/21/16 08/21/16 History Allergies/Adverse Reactions: Allergies Allergy/AdvReac Type Severity Reaction Status Date / Time meperidine [From Demerol] Allergy Unknown/Unable Verified 08/21/16 20:15 to obtain morphine Allergy Unknown/Unable Verified 08/21/16 20:15 to obtain Review of systems: REVIEW OF SYSTEMS: See HPI - Constitutional Constitutional: Denies: Fatigue. Absent: syncope, anorexia, night sweats - EENT Eyes: Absent: blurry vision, loss of vision, diplopia Ears: Absent: decreased hearing, ear pain, ear discharge - Cardiovascular Cardiovascular: Present: chest pain with exertion, dyspnea on exertion. Denies edema. Reports occasional palpitations. Absent: chest pain with deep breath, claudication - Respiratory Respiratory: Acknowledges dyspnea on exertion but denies cough. Absent: wheezing, hemoptysis, change in phlegm color - Gastrointestinal Gastrointestinal: Denies: constipation. Absent: abdominal pain, hematemesis, hematochezia, melena, change in bowel habits, nausea - Genitourinary Genitourinary: Absent: difficulty urinating, dysuria, urinary hesitancy, flank pain - Musculoskeletal Musculoskeletal: Present: back pain Absent: joint swelling, muscle cramps - Neurological Neurological: Present: Unsteady gait at this point. Left-sided hemiparesis. Absent: dizziness - Psychiatric Psychiatric: Absent: anxiety, depression, difficulty concentrating - Endocrine Endocrine: Absent: cold intolerance, heat intolerance, polyuria, polyphagia, polydipsia - Hematologic/Lymphatic Hematologic/Lymphatic: Present: easy bruising. Absent: easy bleeding -Integumentary Integumentary: Absent: lesions, rashes, skin breakdown Medical,Surgical,& Family Hx - Medical History Cardio: History of: CAD, Hypertension, Cardiovascular Problems (STENTS) Neurology: History of: Migraine, TIA No history of: Seizures HEENT: History of: Ear Problem Endocrine: History of: Diabetes Mellitus (NIDDM), Dyslipidemia Respiratory: History of: Asthma, Obstructive Sleep Apnea Genitourinary: No history of: Kidney Stones Gastrointestinal: History of: GERD Musculoskeletal: History of: Back/Neck Problems Hematology: History of: Clotting Problems Reproductive: No history of: Breast Cancer - Surgical History Cardiac Surgeries: Sugical HX of: Cardiac Catheterization Neurologic Surgeries: Patient denies: Neurologic Surgery HEENT Surgeries: Surgical HX of: Tonsilectomy & Adenoidectomy Abdominal Surgeries: Surgical HX of: Colonoscopy, EGD Patient denies: Appendectomy, Cholecystectomy Reproductive Surgeries: Surgical HX of;: Section, Hysterectomy Orthopedic Surgeries: Surgical HX of;: Total Knee Replacement (RIGHT) - Family History Family History: Reports;: Family Diabetes, Family Hypertension - Social History Smoking Status: Never smoker Have you smoked in the last 12 months: No Frequency of Alcohol Use: None Type of Drug Use: None Physical Examination Vital Signs Temp Pulse Resp BP Pulse Ox 97.7 F 78 18 137/83 94 L 08/21/16 20:08 08/21/16 20:08 08/21/16 20:08 08/21/16 20:08 08/21/16 20:08 General: [Appears well with no apparent distress.] [Pleasant and cooperative. ] [Appears comfortable.] HEENT: [Bilateral arcus. Normocephalic, atraumatic. Mucous membranes moist. No jaundice noted. Conjunctiva moist and clear, sclerae anicteric] Neck: No JVD/HJR, no thyromegaly or lymphadenopathy noted. No carotid bruit appreciated Cardiac: [Regular rate and rhythm.] [No obvious murmur, rub or gallop.] Mid and left chest tender to light palpation Lungs: [Clear to auscultation without accessory muscle use to assist the respiratory pattern.] Using oxygen intermittently Abdomen: Soft, bowel sounds normoactive. Nontender and nondistended. No abdominal bruit or thrill noted. No masses noted. Musculoskeletal: No fluid collection. Joint pain in hand Extremities: No clubbing, cyanosis noted. [ No edema noted.] Upper extremity pulses 2+. Lower extremity pulses 2+. Capillary refill less than 3 seconds. Skin: No unusual lesions or rashes. No skin breakdown appreciated. Neuro: Awake, alert and oriented 3. Left upper and lower extremity hemiparesis noted. No essential tremor is appreciated. Result/EKG - Labs CBC & BMP: 08/22/16 05:52 08/22/16 05:52 Lab Results: I have reviewed the past 24 hour labs Labs: Laboratory Results - last 24 hr 08/22/16 08/22/16 08/22/16 00:13 05:52 05:52 WBC 4.1 RBC 3.65 L Hgb 10.5 L Hct 32.2 L MCV 88.2 MCH 29 MCHC 32.6 RDW 13.6 Plt Count 153 MPV 9.3 L Neut % (Auto) 47.7 Lymph % (Auto) 34.9 [place] % (Auto) 12.0 Eos % (Auto) 4.4 Baso % (Auto) 0.5 Neut # (Auto) 2.0 Lymph # (Auto) 1.4 [place] # (Auto) 0.5 Eos # (Auto) 0.2 Baso # (Auto) 0.0 Immature Gran % 0.5 Nucleated RBC % 0.0 Immature Gran # 0.02 Nucleated RBCs # 0.00 Sodium Potassium Chloride Carbon Dioxide Anion Gap BUN Creatinine GFR Calculation BUN/Creatinine Ratio Glucose POC Glucose Hemoglobin A1c Calculated Osmolality Calcium Magnesium Total Bilirubin AST ALT Alkaline Phosphatase Troponin I < 0.015 < 0.015 Total Protein Albumin Globulin Albumin/Globulin Ratio 08/22/16 08/22/16 08/22/16 05:52 05:52 08:00 WBC RBC Hgb Hct MCV MCH MCHC RDW Plt Count MPV Neut % (Auto) Lymph % (Auto) [place] % (Auto) Eos % (Auto) Baso % (Auto) Neut # (Auto) Lymph # (Auto) [place] # (Auto) Eos # (Auto) Baso # (Auto) Immature Gran % Nucleated RBC % Immature Gran # Nucleated RBCs # Sodium 144 Potassium 4.2 Chloride 112 H Carbon Dioxide 24 Anion Gap 12.2 BUN 19 H Creatinine 1.30 H GFR Calculation 69 BUN/Creatinine Ratio 14.00 Glucose 95 POC Glucose 98 Hemoglobin A1c 5.8 Calculated Osmolality 287.8 Calcium 8.3 L Magnesium 2.1 Total Bilirubin 0.40 AST 30 ALT 28 Alkaline Phosphatase 94 Troponin I Total Protein 6.0 L Albumin 3.1 L Globulin 2.9 Albumin/Globulin Ratio 1.0 L - Diagnostic Findings Procedure: Chest x-ray: report reviewed by me, CT: report reviewed by me - EKG EKG results: interpreted by me EKG shows: sinus rhythm Quality Measures - Stroke Onset of Symptoms Date: 08/21/16 Presenting Symptoms: On examination - dysphasia - motor Symptom Onset Unknown: No <Oni Celis - Last Filed: 08/22/16 10:25> History of Present Illness - Consult Narrative History of present illness: Ms. Doe is a 61 year old female patient is known to me. She presented with chest discomfort and will refer her to the hospital where she got a stent to her distal LAD. She has done from a cardiac standpoint reasonably well. She is a very difficult historian and still complaining of chest discomfort reproducible with pressure to her anterior chest. Her enzymes are negative and our plan is going to be this get her evaluated for what recently now looks to be a transient ischemic attack. Dr. Kinney is reviewing. CC: Jean Marie Mancilla MD Physical Examination Vital Signs Temp Pulse Resp BP Pulse Ox 97.7 F 78 18 137/83 94 L 08/21/16 20:08 08/21/16 20:08 08/21/16 20:08 08/21/16 20:08 08/21/16 20:08 Result/EKG - Labs CBC & BMP: 08/22/16 05:52 08/22/16 05:52 Labs: Laboratory Results - last 24 hr 08/22/16 08/22/16 08/22/16 00:13 05:52 05:52 WBC 4.1 RBC 3.65 L Hgb 10.5 L Hct 32.2 L MCV 88.2 MCH 29 MCHC 32.6 RDW 13.6 Plt Count 153 MPV 9.3 L Neut % (Auto) 47.7 Lymph % (Auto) 34.9 [place] % (Auto) 12.0 Eos % (Auto) 4.4 Baso % (Auto) 0.5 Neut # (Auto) 2.0 Lymph # (Auto) 1.4 [place] # (Auto) 0.5 Eos # (Auto) 0.2 Baso # (Auto) 0.0 Immature Gran % 0.5 Nucleated RBC % 0.0 Immature Gran # 0.02 Nucleated RBCs # 0.00 Sodium Potassium Chloride Carbon Dioxide Anion Gap BUN Creatinine GFR Calculation BUN/Creatinine Ratio Glucose POC Glucose Hemoglobin A1c Calculated Osmolality Calcium Magnesium Total Bilirubin AST ALT Alkaline Phosphatase Troponin I < 0.015 < 0.015 Total Protein Albumin Globulin Albumin/Globulin Ratio 08/22/16 08/22/16 08/22/16 05:52 05:52 08:00 WBC RBC Hgb Hct MCV MCH MCHC RDW Plt Count MPV Neut % (Auto) Lymph % (Auto) [place] % (Auto) Eos % (Auto) Baso % (Auto) Neut # (Auto) Lymph # (Auto) [place] # (Auto) Eos # (Auto) Baso # (Auto) Immature Gran % Nucleated RBC % Immature Gran # Nucleated RBCs # Sodium 144 Potassium 4.2 Chloride 112 H Carbon Dioxide 24 Anion Gap 12.2 BUN 19 H Creatinine 1.30 H GFR Calculation 69 BUN/Creatinine Ratio 14.00 Glucose 95 POC Glucose 98 Hemoglobin A1c 5.8 Calculated Osmolality 287.8 Calcium 8.3 L Magnesium 2.1 Total Bilirubin 0.40 AST 30 ALT 28 Alkaline Phosphatase 94 Troponin I Total Protein 6.0 L Albumin 3.1 L Globulin 2.9 Albumin/Globulin Ratio 1.0 L
--- NOTE | 2016-08-22 11:55 | Magnetic Resonance Report ---
Exam: MR head/brain wo con Date: 08/22/2016 4:00 AM Comparison: CT brain 08/21/2016 Indication: CVA, left-sided weakness with slurred speech Technique:[Multiple acquisitions were obtained including sagittal T1, coronal T2, and axial ADC, diffusion, FLAIR, T2, GRE, and T1 scans without contrast only. Scans were obtained on a 1.5 Winnie magnet.] Findings: The ventricles are normal in size with no midline displacement. The pituitary has a normal appearance and the cerebellar tonsils are normal in their location. No acute infarction is identified on the diffusion scans. No evidence of hemorrhage, mass, or extracerebral collection. Diffuse atrophy with scattered small FLAIR/T2 hyperintensities. Asymmetric atrophy in the left occipital lobe with possible chronic infarct. No acute findings in the paranasal sinuses, orbits, temporal bones, or [place] of [place]. Impression: No acute infarction. Atrophy and microvascular disease. Asymmetric atrophy in the left occipital lobe with possible chronic infarct. PROCEDURE INTERPRETED AT [facility] DEPARTMENT OF RADIOLOGY Final Report Signed by: Dr. Justina Childress
[2016-08-22] MEDS: PROBENECID 500 MG TABLET PO SCH ×2 (11:57→21:26)
[2016-08-22] MEDS: ISOSORBIDE MONONITRATE 30 MG TABLET PO SCH (11:57)
--- NOTE | 2016-08-22 14:04 | Neurology Consult Note ---
History of Present Illness History of present illness: Ms. Doe is a 61 year old female with a hx of CAD and recent cardiac cath with stent placement on 08/15/16, hypertension, coronary artery disease, hyperlipidemia, diabetes, morbid obesity, arthritis, thyroid disorder. She presented to the ED last night with acute onset of left-sided weakness and slurred speech at 6 PM. Upon further questioning the patient reports that she has had frequent episodes of slurred speech at home over the last several months. She also describes periods of generalized weakness that improved spontaneously. She reports that her symptoms this time are worse than previous episodes. She gives a history of previous TIAs in 2009 and 2014. Today she describes acute onset left-sided weakness involving the upper and lower extremity with associated left chest pain that radiates into her neck and shoulder and into her jaw. She describes the symptoms in the neck and jaw tightness. She also had numbness and tingling in her hand. Upon arrival to the emergency department the patient was found to have significant weakness that is on the left side of her body both upper and lower extremity. She also had slurred speech and slowed speech. The patient was able to compose her words but had difficulty getting them out. She appears to understand verbal conversation well. The patient is on aspirin and Brilinta after her left heart cath with stent placement in the mid LAD last week. It was decided yesterday to not to give her TPA. She underwent MRI of the brain today reveals no acute abnormalities, it did show old left occipital lobe stroke. Carotid ultrasound is unremarkable. She is able to get up and walk with minimal assistance. Home Medications Medication Instructions Recorded Confirmed Type Carbidopa/Levodopa 25-100 [Sinemet 1 tablet PO BID 11/15/15 08/21/16 History 25-100] Carvedilol [Coreg] 6.25 mg PO BID 11/15/15 08/21/16 History Cyanocobalamin Tab [Vitamin B12 500 mcg PO DAILY 11/15/15 08/21/16 History Tab] Ergocalciferol (Vitamin D2) 50,000 unit PO Q7D 11/15/15 08/21/16 History [Vitamin D2] Furosemide Tab [Lasix Tab] 80 mg PO DAILY 11/15/15 08/21/16 History Levothyroxine Tab [Synthroid Tab] 25 mcg PO DAILY@0700 11/15/15 08/21/16 History Linagliptin [Tradjenta] 5 mg PO DAILY 11/15/15 08/21/16 History Nitroglycerin Sl Tab [Nitrostat] 0.4 mg SL Q5M PRN 11/15/15 08/21/16 History [place]ula-3 Fatty Acids [Fish Oil] 500 mg PO DAILY 11/15/15 08/21/16 History Pantoprazole Tab [Protonix Tab] 40 mg PO DAILY 11/15/15 08/21/16 History Potassium Chloride 10 meq PO TID 11/15/15 08/21/16 History Probenecid 500 mg PO BID 11/15/15 08/21/16 History Sertraline [Zoloft] 100 mg PO DAILY 11/15/15 08/21/16 History Aspirin EC Tab 81 mg PO DAILY #30 tablet 08/16/16 08/21/16 Rx Atorvastatin [Lipitor] 40 mg PO BEDTIME #30 tablet 08/16/16 08/21/16 Rx Ticagrelor [Brilinta] 90 mg PO BID #60 tablet 08/16/16 08/21/16 Rx amLODIPine [Norvasc] 5 mg PO DAILY #30 tablet 08/16/16 08/21/16 Rx Gabapentin [Gabapentin] 1 capsule PO BID 08/21/16 08/21/16 History Allergies Allergy/AdvReac Type Severity Reaction Status Date / Time meperidine [From Demerol] Allergy Unknown/Unable Verified 08/21/16 20:15 to obtain morphine Allergy Unknown/Unable Verified 08/21/16 20:15 to obtain 12 point system: reviewed and no additional remarkable complaints except as stated Medical,Surgical,& Family Hx - Medical History Cardio: History of: CAD, Hypertension, Cardiovascular Problems (STENTS) Neurology: History of: Migraine, TIA No history of: Seizures HEENT: History of: Ear Problem Endocrine: History of: Diabetes Mellitus (NIDDM), Dyslipidemia Respiratory: History of: Asthma, Obstructive Sleep Apnea Genitourinary: No history of: Kidney Stones Gastrointestinal: History of: GERD Musculoskeletal: History of: Back/Neck Problems Hematology: History of: Clotting Problems Reproductive: No history of: Breast Cancer - Surgical History Cardiac Surgeries: Sugical HX of: Cardiac Catheterization Neurologic Surgeries: Patient denies: Neurologic Surgery HEENT Surgeries: Surgical HX of: Tonsilectomy & Adenoidectomy Abdominal Surgeries: Surgical HX of: Colonoscopy, EGD Patient denies: Appendectomy, Cholecystectomy Reproductive Surgeries: Surgical HX of;: Section, Hysterectomy Orthopedic Surgeries: Surgical HX of;: Total Knee Replacement (RIGHT) - Family History Family History: Reports;: Family Diabetes, Family Hypertension - Social History Smoking Status: Never smoker Frequency of Alcohol Use: None Type of Drug Use: None Exam - Constitutional Vitals: Period Temp Pulse Resp BP Sys/Ambriz Pulse Ox Last 24 Hr 97.8 F-98.1 F 57-73 13-18 122-143/64-90 95-98 Exam: GENERAL: Patient is in no acute distress. NECK: Neck is supple. There is no JVD. No carotid bruits present. No thyroid masses. CVS: First and second heart sounds are normal. There is no S3 present. Regular rate and rhythm. RESPIRATORY: Lungs are clear to auscultation without any rales or rhonchi. ABDOMEN: Soft and non-tender. Bowel sounds are present. There is no hepatosplenomegaly. EXT: There is no palpable edema. Peripheral pulses are present. Skin: No rashes Central Nervous system: General: Alert, awake and Oriented x 3 Speech: Fluent Comprehension: Intact and normal Facial expressions: Normal Cranial Nerves: CN1/Olfactory: Normal CN II/ Optic: Normal, Visual Watt unreliable CN III, and : JUANY & EOMI CN V: Normal & intact CN VII: face is symmetric CNVIII: Normal CN XI/X/XI/XII: Intact and Normal Motor: Bulk and Tone is normal. Strength in the right 5/5 Strength in the left UE 5/5, left lower extremity 4+/5 Sensory: Decreased for all the modalities of PP, LT and temp sense in the glove and stocking distribution Reflexes: 1+ and symmetrical Cerebellar function: Normal finger to nose and heel to rowland testing. Toes: Equivocal Gait: Slightly broad-based gait. Walked with min assist Results - Labs CBC & BMP: 08/22/16 05:52 08/22/16 05:52 Assessment and Plan (1) Transient weakness of left leg Status: Acute Assessment and plan: Patient is on Brilinta and aspirin. I doubt she had a TIA either. We need to look into some other pathology such as underlying dementia. Recommend to continue Brilinta and aspirin. Stop Sinemet Continue PT and OT. Okay to go to the floor. Thank you for the consult Current Visit: Yes Specialty Discharge - Follow Up or Referrals
--- NOTE | 2016-08-22 18:05 | ECHO Report ---
Naheed Doe Exam Date: 08/22/2016 09:49 Referring Physician: Technologist: Quin Amaral Age: 61 Ht (in): 66 Wt (lb): 289 Gender: F Exam Location: [facility] Echo Indications: acute ischemic stroke, obesity, sleep apnea, diabetes, chest pain, CAD, HTN, dyslipidemia BP: 133 / 64 HR: 61 Rhythm: Sinus Technical Quality: Fair IMPRESSIONS Severely increased septal wall thickness. Mildly increased posterior wall thickness. Mild concentric left ventricular hypertrophy with diastolic dysfunction. Left ventricular ejection fraction is estimated at 55-60 %. Normal right ventricular size. Normal right atrial size. Normal left atrial size. Mild mitral valve sclerosis. Mild mitral valve regurgitation. Aortic valve sclerosis without stenosis. Trace aortic valve regurgitation. Morphologically normal tricuspid valve. Trace tricuspid valve regurgitation. Morphologically normal tricuspid valve. Trace tricuspid valve regurgitation. Morphologically normal pulmonic valve. Trace pulmonary valve regurgitation. No pericardial effusion. Normal size aortic root and proximal ascending aorta. MEASUREMENTS (Male / Female) Normal Values 2D ECHO LV Diastolic Diameter PLAX 3.8 cm 4.2 - 5.9 / 3.9 - 5.3 cm LV Systolic Diameter PLAX 2.4 cm LV Fractional Shortening PLAX 37.4 % IVS Diastolic Thickness 1.7 cm 0.6 - 1.0 / 0.6 - 0.9 cm LVPW Diastolic Thickness 1.2 cm 0.6 - 1.0 / 0.6 - 0.9 cm RV Internal Dim ED PLAX 2.7 cm Aortic Root Diameter 2.3 cm LA Systolic Diameter LX 3.6 cm 3.0 - 4.0 / 2.7 - 3.8 cm DOPPLER TR Peak Velocity 125.0 cm/s TR Peak Gradient 6.3 mmHg FINDINGS Left Ventricle Severely increased septal wall thickness. Mildly increased posterior wall thickness. Mild concentric left ventricular hypertrophy with diastolic dysfunction. Left ventricular ejection fraction is estimated at 55-60 %. Right Ventricle Normal right ventricular size. Right Atrium Normal right atrial size. Left Atrium Normal left atrial size. Mitral Valve Mild mitral valve sclerosis. Mild mitral valve regurgitation. Aortic Valve Aortic valve sclerosis without stenosis. Trace aortic valve regurgitation. Tricuspid Valve Morphologically normal tricuspid valve. Trace tricuspid valve regurgitation. Pulmonic Valve Morphologically normal pulmonic valve. Trace pulmonary valve regurgitation. Pericardium No pericardial effusion. Aorta Normal size aortic root and proximal ascending aorta. Oni Celis MD (Electronically Signed) Final Date: 22 Aug 2016 18:04
[2016-08-22] MEDS: ATORVASTATIN 40 MG TABLET PO SCH (21:27)
[2016-08-23 05:31] LABS: Basophils % 0.4 % (0.0-0.8); Eosinophils # 0.2 10*3/uL (0.0-0.87); Eosinophils % 3.1 % (0.00-10.9); Hematocrit 32.1 VOL% (35.7-47.0); Hemoglobin 10.5 GM/DL (12.0-16.0); Immature Granulocytes % 0.6 %; Immature Granulocytes Absolute 0.03 #; Lymphocytes # 1.6 10*3/uL (1.4-4.0); Lymphocytes % 30.5 % (21.3-54.2); Mean Corpuscular HGB Conc 32.7 GM/DL (32-36); Mean Corpuscular Hemoglobin 28 PG (27-34); Mean Corpuscular Volume 86.5 FL (87-102); Monocytes # 0.5 10*3/uL (0.11-0.8); Monocytes % 9.7 % (1.7-12.7); Neutrophils # 2.9 10*3/uL (1.4-7.4); Neutrophils % 55.7 % (38.7-73.9); Platelet Count 172 T/CUMM (130-400); Red Blood Count 3.71 MC/CUMM (3.8-5.5); Red Cell Distribution Width 13.6 % (9.3-17.3); White Blood Count 5.2 T/CUMM (4-12)
[2016-08-23 06:00] LABS: Calcium 8.3 MG/DL (8.5-10.1); Osmolality,Calculated 286.1 MOS/KG (273-304); Potassium 3.7 MMOL/L (3.5-5.1)
[2016-08-23] MEDS: LEVOTHYROXINE 25 MCG TABLET PO SCH (06:10)
[2016-08-23] MEDS: INSULIN LISPRO 100 UNIT/ML SUBCUT SCH ×4 (07:51→21:33)
--- NOTE | 2016-08-23 08:48 | EKG Report ---
Stationary ECG Study [facility] Test Date: 08/23/2016 7:24:05 AM Pat Name: ABIEL COPELAND Department: Room: 270 Gender: F Automation Technologist: MICHELLE : 1955 Requested by: Lyndsay Allison Order Number: [id number] Reading MD: LEVI RAMOS Intervals [place] Rate: 65 P: 999 MA: 0 QRS: 15 QRSD: 101 T: 1 QT: 451 QTc: 462 Interpretive Statements SINUS RHYTHM LOW QRS VOLTAGE IN PRECORDIAL LEADS Electronically Signed On 08-23-16 11:34:26 CDT by LEVI RAMOS [email or web address]
[2016-08-23] MEDS: TICAGRELOR 90 MG TABLET PO SCH ×2 (09:27→21:31)
[2016-08-23] MEDS: OMEGA 3 ACID ETHYL ESTERS 1 GM CAPSULE PO SCH (09:27)
[2016-08-23] MEDS: sitaGLIPtin 100 MG TABLET PO SCH (09:27)
[2016-08-23] MEDS: POTASSIUM CHLORIDE 10 MEQ TABLET PO SCH ×3 (09:28→21:32)
[2016-08-23] MEDS: SERTRALINE 100 MG TABLET PO SCH (09:28)
[2016-08-23] MEDS: PROBENECID 500 MG TABLET PO SCH ×2 (09:28→21:31)
[2016-08-23] MEDS: LISINOPRIL 5 MG TABLET PO SCH (09:28)
[2016-08-23] MEDS: ASPIRIN EC 81 MG TABLET PO SCH (09:28)
[2016-08-23] MEDS: CARVEDILOL 6.25 MG TABLET PO SCH ×2 (09:28→21:32)
[2016-08-23] MEDS: ISOSORBIDE MONONITRATE 30 MG TABLET PO SCH (09:28)
[2016-08-23] MEDS: FUROSEMIDE 80 MG TABLET PO SCH (09:28)
[2016-08-23] MEDS: PANTOPRAZOLE 40 MG TABLET PO SCH (09:28)
[2016-08-23] MEDS: GABAPENTIN 300 MG CAPSULE PO SCH ×2 (09:28→21:31)
[2016-08-23] MEDS: CYANOCOBALAMIN 500 MCG TABLET PO SCH (09:28)
--- NOTE | 2016-08-23 12:16 | Cardiology Progress Note ---
<Lita Gottlieb E - Last Filed: 08/23/16 13:36> Assessment and Plan - Time spent with patient Time spent with patient: Less than 30 minutes (1) Acute ischemic stroke Status: Acute Assessment and plan: SEE PLAN OF CARE LISTED BELOW Current Visit: Yes (2) Chest pain Status: Acute Assessment and plan: SEE PLAN OF CARE LISTED BELOW Current Visit: No (3) CAD (coronary artery disease) Status: Chronic Assessment and plan: SEE PLAN OF CARE LISTED BELOW Current Visit: No Qualifiers: Coronary Disease-Associated Artery/Lesion type: [place] artery [place] vs. transplanted heart: [place] heart Associated angina: with unstable angina Qualified Code(s): I25.110 - Atherosclerotic heart disease of [place] coronary artery with unstable angina pectoris (4) Diabetes Status: Chronic Assessment and plan: SEE PLAN OF CARE LISTED BELOW Current Visit: No Qualifiers: Diabetes mellitus type: type 2 Diabetes mellitus complication status: without complication Diabetes mellitus dedicated intermodal truck driver insulin use: without dedicated intermodal truck driver use Qualified Code(s): E11.9 - Type 2 diabetes mellitus without complications (5) Dyslipidemia Status: Chronic Assessment and plan: SEE PLAN OF CARE LISTED BELOW Current Visit: No (6) Hypertension Status: Chronic Assessment and plan: SEE PLAN OF CARE LISTED BELOW Current Visit: No Qualifiers: Hypertension type: essential hypertension Qualified Code(s): I10 - Essential (primary) hypertension (7) Obesity Status: Chronic Assessment and plan: SEE PLAN OF CARE LISTED BELOW Current Visit: No (8) Sleep apnea Status: Chronic Assessment and plan: SEE PLAN OF CARE LISTED BELOW Current Visit: No Qualifiers: Sleep apnea type: unspecified type Qualified Code(s): G47.30 - Sleep apnea , unspecified (9) Transient weakness of left leg Status: Acute Assessment and plan: SEE PLAN OF CARE LISTED BELOW Current Visit: Yes Cardiology - PN: Subj Interval history: PERSONNEL ASSOCIATE: DR. CELIS Ms. Doe is a 61 y/o BF who was admitted rom Dr. Celis's office August 14, 2016 with complaints of chest pain concerning for angina. Patient underwent elective cardiac catheterization August 15, 2016, performed by Dr. Nava, requiring stent to the distal LAD with MORENO. She returned to the emergency department on with complaints of sudden onset of garbled speech, left facial droop and left-sided weakness which started approximately 2 hours prior to admission. Patient has undergone CT of the head which showed no acute abnormality. Carotid ultrasound reveals no significant stenosis. Telemetry reveals no arrhythmia. She has continued to have left sided chest pain. Some of her discomfort is musculoskeletal in nature, with tenderness to touch, but she also describes chest tightness and shortness of breath, occurring with exertion and relieved with rest. Ms. Doe reports she is feeling somewhat better today. She has been up ambulating in her room. She still describes some mild discomfort when ambulating. Her blood pressure and heart rate have been stable. Labs have been stable. Her creatinine is 1.5. she has had 3 sets of negative cardiac biomarkers. Her EKG shows sinus rhythm, no significant changes. At this point, we will continue with aspirin and Brilinta without fail. We will monitor her blood pressure closely. Will further discuss with Dr. Celis additional recommendations. ASSESSMENT/PLAN: 1. [id number] - MRI revealed no acute abnormalities, only old left occipital lobe stroke. PT, OT are working with her. 2. KNOWN CAD S/P PCI LAD - continue ASA/Brilinta, Betablocker and lipid lowering agent. Norvasc was discontinued and she has been started on Lisinopril. Creatinine 1.5 today. Will monitor BMP. 3. HYPERTENSION - adjust medications accordingly during the hospital stay 4. DYSLIPIDEMIA - no need to repeat FLP, LDL 90 last admission and recently increased Lipitor to 40 mg each evening. 5. DIABETES -continue sliding scale insulin. 6 LEONILA - Will ask family to bring sleep device during the hospital stay. 7. CHEST PAIN -some of the chest discomfort is musculoskeletal in nature. However, she does have complaints concerning for angina that her cardiac biomarkers are negative and EKG is unchanged from prior EKG. We have added a long-acting nitrate. She continues to have some discomfort with exertion. We will start her on Ranexa to see if that helps her symptoms. Exam (Progress Note) - Constitutional Vitals: Period Temp Pulse Resp BP Sys/Ambriz Pulse Ox Last 24 Hr 97.1 F-98.6 F 68-78 14-20 116-133/64-74 94-97 Exam: General: [Appears well with no apparent distress.] [Pleasant and cooperative. ] [Appears comfortable.] HEENT: [Bilateral arcus. Normocephalic, atraumatic. Mucous membranes moist. No jaundice noted. Conjunctiva moist and clear, sclerae anicteric] Neck: No JVD/HJR, no thyromegaly or lymphadenopathy noted. No carotid bruit appreciated Cardiac: [Regular rate and rhythm.] [No obvious murmur, rub or gallop.] Mid and left chest tender to light palpation Lungs: [Clear to auscultation without accessory muscle use to assist the respiratory pattern.] Using oxygen intermittently Abdomen: Soft, bowel sounds normoactive. Nontender and nondistended. No abdominal bruit or thrill noted. No masses noted. Musculoskeletal: No fluid collection. Joint pain in hand Extremities: No clubbing, cyanosis noted. [ Trace edema noted.] Upper extremity pulses 2+. Lower extremity pulses 2+. Capillary refill less than 3 seconds. Skin: No unusual lesions or rashes. No skin breakdown appreciated. Neuro: Awake, alert and oriented 3. Left upper and lower extremity hemiparesis noted. No essential tremor is appreciated. Result/EKG - Labs CBC & BMP: 08/23/16 03:57 08/23/16 03:57 Lab Results: I have reviewed the past 24 hour labs Labs: Laboratory Results - last 24 hr 08/22/16 08/22/16 08/23/16 16:32 20:44 03:57 WBC 5.2 RBC 3.71 L Hgb 10.5 L Hct 32.1 L MCV 86.5 L MCH 28 MCHC 32.7 RDW 13.6 Plt Count 172 MPV 10.0 Neut % (Auto) 55.7 Lymph % (Auto) 30.5 [place] % (Auto) 9.7 Eos % (Auto) 3.1 Baso % (Auto) 0.4 Neut # (Auto) 2.9 Lymph # (Auto) 1.6 [place] # (Auto) 0.5 Eos # (Auto) 0.2 Baso # (Auto) 0.0 Immature Gran % 0.6 Nucleated RBC % 0.0 Immature Gran # 0.03 Nucleated RBCs # 0.00 Sodium Potassium Chloride Carbon Dioxide Anion Gap BUN Creatinine GFR Calculation BUN/Creatinine Ratio Glucose POC Glucose 116 H 132 H Calculated Osmolality Calcium Magnesium 08/23/16 08/23/16 03:57 07:06 WBC RBC Hgb Hct MCV MCH MCHC RDW Plt Count MPV Neut % (Auto) Lymph % (Auto) [place] % (Auto) Eos % (Auto) Baso % (Auto) Neut # (Auto) Lymph # (Auto) [place] # (Auto) Eos # (Auto) Baso # (Auto) Immature Gran % Nucleated RBC % Immature Gran # Nucleated RBCs # Sodium 142 Potassium 3.7 Chloride 106 Carbon Dioxide 26 Anion Gap 13.7 BUN 20 H Creatinine 1.50 H GFR Calculation 58 BUN/Creatinine Ratio 13.00 Glucose 109 H POC Glucose 110 H Calculated Osmolality 286.1 Calcium 8.3 L Magnesium 2.0 - EKG EKG results: interpreted by me, sinus rhythm Quality Measures - Stroke Onset of Symptoms Date: 08/21/16 Presenting Symptoms: On examination - dysphasia - motor Symptom Onset Unknown: No Specialty Discharge - Follow Up or Referrals <Oni Celis - Last Filed: 08/23/16 16:20> Cardiology - PN: Subj Interval history: She looks better to me today. She is much less dysarthric today than she was yesterday. She is ambulating normally with minimal chest discomfort. Her pain to me is not anginal and we will continue treatment for her pain related to nonsteroidals and muscle relaxers. Exam (Progress Note) - Constitutional Vitals: Period Temp Pulse Resp BP Sys/Ambriz Pulse Ox Last 24 Hr 97.1 F-98.2 F 64-78 14-20 116-135/64-79 94-97 Result/EKG - Labs CBC & BMP: 08/23/16 03:57 08/23/16 03:57 Labs: Laboratory Results - last 24 hr 08/22/16 08/22/16 08/23/16 16:32 20:44 03:57 WBC 5.2 RBC 3.71 L Hgb 10.5 L Hct 32.1 L MCV 86.5 L MCH 28 MCHC 32.7 RDW 13.6 Plt Count 172 MPV 10.0 Neut % (Auto) 55.7 Lymph % (Auto) 30.5 [place] % (Auto) 9.7 Eos % (Auto) 3.1 Baso % (Auto) 0.4 Neut # (Auto) 2.9 Lymph # (Auto) 1.6 [place] # (Auto) 0.5 Eos # (Auto) 0.2 Baso # (Auto) 0.0 Immature Gran % 0.6 Nucleated RBC % 0.0 Immature Gran # 0.03 Nucleated RBCs # 0.00 Sodium Potassium Chloride Carbon Dioxide Anion Gap BUN Creatinine GFR Calculation BUN/Creatinine Ratio Glucose POC Glucose 116 H 132 H Calculated Osmolality Calcium Magnesium 08/23/16 08/23/16 08/23/16 03:57 07:06 11:57 WBC RBC Hgb Hct MCV MCH MCHC RDW Plt Count MPV Neut % (Auto) Lymph % (Auto) [place] % (Auto) Eos % (Auto) Baso % (Auto) Neut # (Auto) Lymph # (Auto) [place] # (Auto) Eos # (Auto) Baso # (Auto) Immature Gran % Nucleated RBC % Immature Gran # Nucleated RBCs # Sodium 142 Potassium 3.7 Chloride 106 Carbon Dioxide 26 Anion Gap 13.7 BUN 20 H Creatinine 1.50 H GFR Calculation 58 BUN/Creatinine Ratio 13.00 Glucose 109 H POC Glucose 110 H 103 Calculated Osmolality 286.1 Calcium 8.3 L Magnesium 2.0
[2016-08-23] MEDS: SODIUM CHLORIDE 0.9% 1,000 ML IV SCH ×2 (13:09→23:01)
--- NOTE | 2016-08-23 15:29 | Hospitalist Progress Note ---
Assessment and Plan (1) CAD (coronary artery disease) Status: Chronic Current Visit: No Qualifiers: Coronary Disease-Associated Artery/Lesion type: [place] artery [place] vs. 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 Patient has been ambulating some with physical therapy. Neurology evaluated, not convinced this episode was a TIA. Cardiology also assisting. Patient will most likely require swing bed placement, social work consulted. Exam - Constitutional Vitals: Period Temp Pulse Resp BP Sys/Ambriz Pulse Ox Last 24 Hr 97.1 F-98.6 F 67-78 14-20 116-133/64-79 94-97 General appearance: over weight - Head Head exam: Present: normocephalic, atraumatic - Eye Eye exam: Present: EOMI Pupils: Present: JUANY - ENT ENT exam: Present: normal exam - Neck Neck exam: Present: normal inspection - Respiratory Respiratory exam: Present: clear to auscultation bilaterally. Absent: wheezes - Cardiovascular Cardiovascular exam: Present: regular rate and rhythm - GI/Abdominal GI/Abdominal exam: Present: normal bowel sounds, soft. Absent: tenderness, rebound - Extremities Exam Extremities exam: Present: normal inspection - Back Exam Back exam: Present: normal inspection - Neurological Exam Neurological exam: Present: alert - Psychiatric Psychiatric exam: Present: normal affect, normal mood - Skin Skin exam: Present: warm, intact Results - Labs CBC & BMP: 08/23/16 03:57 08/23/16 03:57 Quality Measures - Stroke Onset of Symptoms Date: 08/21/16 Presenting Symptoms: On examination - dysphasia - motor Symptom Onset Unknown: No Specialty Discharge - Follow Up or Referrals
--- NOTE | 2016-08-23 19:36 | Progress Note ---
Mr. Doe seems to be doing really well. No new problems are reported. Weakness has improved sign ificantly. PHYSICAL EXAMINATION CHEST: Clear. HEART: Regular rate and rhythm. ABDOMEN: Soft, nontender. NEUROLOGIC: She is alert and awake. Cranial nerves II through XII are intact. Motor exam, she has mild left lower extremity weakness with 4+/5. Strength exam is decreased in all modalities. Refle xes are 1+ and symmetrical. She is walking with a slightly broad based gait. IMPRESSION: Transient weakness of left leg. Continue Brilinta and aspirin. I doubt she had a TIA. Continue PT and OT. No further intervention at this time. Signed off. Please call p.r.n.
[2016-08-23] MEDS: RANOLAZINE 500 MG TABLET PO SCH (21:31)
[2016-08-23] MEDS: ATORVASTATIN 40 MG TABLET PO SCH (21:31)
[2016-08-23] MEDS: ENOXAPARIN 40 MG/0.4 ML SYRINGE SUBCUT SCH (23:01)
[2016-08-24] MEDS: SODIUM CHLORIDE 0.9% 1,000 ML IV SCH (02:28)
[2016-08-24 06:09] LABS: Calcium 8.9 MG/DL (8.5-10.1); Magnesium 1.9 MG/DL (1.8-2.4); Osmolality,Calculated 287.8 MOS/KG (273-304); Potassium 3.9 MMOL/L (3.5-5.1)
[2016-08-24] MEDS: ASPIRIN EC 81 MG TABLET PO SCH (08:21)
[2016-08-24] MEDS: OMEGA 3 ACID ETHYL ESTERS 1 GM CAPSULE PO SCH (08:21)
[2016-08-24] MEDS: SERTRALINE 100 MG TABLET PO SCH (08:22)
[2016-08-24] MEDS: CYANOCOBALAMIN 500 MCG TABLET PO SCH (08:22)
[2016-08-24] MEDS: GABAPENTIN 300 MG CAPSULE PO SCH (08:22)
[2016-08-24] MEDS: RANOLAZINE 500 MG TABLET PO SCH (08:22)
[2016-08-24] MEDS: PROBENECID 500 MG TABLET PO SCH (08:22)
[2016-08-24] MEDS: ISOSORBIDE MONONITRATE 30 MG TABLET PO SCH (08:22)
[2016-08-24] MEDS: PANTOPRAZOLE 40 MG TABLET PO SCH (08:23)
[2016-08-24] MEDS: INSULIN LISPRO 100 UNIT/ML SUBCUT SCH ×2 (08:23→14:33)
[2016-08-24] MEDS: POTASSIUM CHLORIDE 10 MEQ TABLET PO SCH (08:24)
[2016-08-24] MEDS: CARVEDILOL 6.25 MG TABLET PO SCH (08:25)
[2016-08-24] MEDS: sitaGLIPtin 100 MG TABLET PO SCH (08:25)
[2016-08-24] MEDS: FUROSEMIDE 80 MG TABLET PO SCH (08:25)
[2016-08-24] MEDS: TICAGRELOR 90 MG TABLET PO SCH (08:26)
[2016-08-24] MEDS: LISINOPRIL 5 MG TABLET PO SCH (08:26)
[2016-08-24] MEDS: LEVOTHYROXINE 25 MCG TABLET PO SCH (08:30)
--- NOTE | 2016-08-24 11:05 | Discharge Summary ---
Hospital Course - Hospital Course Hospital Course: Ms. Doe is a 61 year old female with a hx of CAD and recent LHC with stent placement on 08/15/16. She presented to the ED with acute onset of left-sided weakness and slurred speech at 6 PM. Upon further questioning the patient reported that she has had frequent episodes of slurred speech at home over the last several months. She also described periods of generalized weakness that improved spontaneously. She reported that her symptoms the day of admission were worse than previous episodes. She gave a history of previous TIAs in 2009 and 2014. She described acute onset left-sided weakness involving the upper and lower extremity with associated left chest pain that radiated into her neck and shoulder and into her jaw. She described the symptoms in the neck and jaw tightness. She also had numbness and tingling in her hand. Upon arrival to the emergency department the patient was found to have significant weakness that is on the left side of her body both upper and lower extremity. She also had slurred speech and slowed speech. The patient was able to compose her words but had difficulty getting them out. She appeared to understand verbal conversation well. She reported difference in sensation between the right and left upper and lower extremity. Her daughter was at the bedside. The patient is on aspirin and Brilinta after her left heart cath with stent placement in the mid LAD last week. She was admitted to the hospitalist service for further evaluation. Cardiology and Neurology were consulted. MRI did not show an acute process. Neurology did not believe this current episode was caused by TIA. Cardiology discontinued her norvasc and started her on lisinopril and ranexa. She has worked well with physical therapy. She has now reached maximum benefit of inpatient stay and will be discharged home. - Time spent with patient Time with patient DS: Less than 30 minutes Diagnosis - Discharge Diagnosis (1) CAD (coronary artery disease) Status: Chronic (2) Hypertension Status: Chronic (3) Dyslipidemia Status: Chronic (4) Diabetes Status: Chronic (5) Acute ischemic stroke Status: Chronic Specialty Discharge - Follow Up or Referrals Discharge Plan - Discharge Data Disposition: Disch/Xfer to Snf Condition at Discharge: Stable Discharge Diet: advance to your usual diet Activity: as per physical therapy Hygiene: no restrictions Weight Bearing at Discharge: weight bear as tolerated Driving: not until seen by doctor Contact your physician if you experience:: fever over 101, Shortness of breath - Discharge Medications New Lisinopril [Prinivil] 5 mg PO DAILY #30 tablet Ranolazine [Ranexa] 500 mg PO BID #60 tablet Isosorbide Mononitrate [Imdur] 30 mg PO DAILY #30 tablet Continue Sertraline [Zoloft] 100 mg PO DAILY Linagliptin [Tradjenta] 5 mg PO DAILY Ergocalciferol (Vitamin D2) [Vitamin D2] 50,000 unit PO Q7D Cyanocobalamin Tab [Vitamin B12 Tab] 500 mcg PO DAILY Probenecid 500 mg PO BID Potassium Chloride 10 meq PO TID Pantoprazole Tab [Protonix Tab] 40 mg PO DAILY Nitroglycerin Sl Tab [Nitrostat] 0.4 mg SL Q5M PRN PRN Reason: Chest Pain Levothyroxine Tab [Synthroid Tab] 25 mcg PO DAILY@0700 [place]-3 Fatty Acids [Fish Oil] 500 mg PO DAILY Furosemide Tab [Lasix Tab] 80 mg PO DAILY Carvedilol [Coreg] 6.25 mg PO BID Carbidopa/Levodopa 25-100 [Sinemet 25-100] 1 tablet PO BID Aspirin EC Tab 81 mg PO DAILY #30 tablet Ticagrelor [Brilinta] 90 mg PO BID #60 tablet Gabapentin 1 capsule PO BID Atorvastatin [Lipitor] 40 mg PO BEDTIME #30 tablet Discontinued amLODIPine [Norvasc] 5 mg PO DAILY #30 tablet - Follow Up or Referral - Forms/Instructions Instructions: Ischemic Stroke (GEN), Self Care Measures After a Stroke (GEN) Exam - Constitutional Vitals: Period Temp Pulse Resp BP Sys/Ambriz Pulse Ox Last 24 Hr 97.2 F-98.2 F 62-67 16-20 123-139/63-80 92-97 General appearance: over weight - Head Head exam: Present: normocephalic, atraumatic - Eye Eye exam: Present: EOMI Pupils: Present: JUANY - ENT ENT exam: Present: normal exam - Neck Neck exam: Present: normal inspection - Respiratory Respiratory exam: Present: clear to auscultation bilaterally - Cardiovascular Cardiovascular exam: Present: regular rate and rhythm - GI/Abdominal GI/Abdominal exam: Present: normal bowel sounds, soft. Absent: tenderness, rebound - Extremities Exam Extremities exam: Present: normal inspection - Back Exam Back exam: Present: normal inspection - Neurological Exam Neurological exam: Present: alert, oriented X3 - Psychiatric Psychiatric exam: Present: normal affect, normal mood - Skin Skin exam: Present: warm, intact Discharge Results Labs on day of discharge: Labs from last 24 hours 08/24/16 08/23/16 08/23/16 04:12 20:34 16:41 Sodium 144 Potassium 3.9 Chloride 108 H Carbon Dioxide 26 Anion Gap 13.9 BUN 18 Creatinine 1.30 H GFR Calculation 68 BUN/Creatinine Ratio 13.00 Glucose 105 POC Glucose 116 H 144 H Calculated Osmolality 287.8 Calcium 8.9 Magnesium 1.9 08/23/16 11:57 Sodium Potassium Chloride Carbon Dioxide Anion Gap BUN Creatinine GFR Calculation BUN/Creatinine Ratio Glucose POC Glucose 103 Calculated Osmolality Calcium Magnesium DS: Provider Date of admission: 08/21/16 22:09 Primary care physician: Ale Cloud M.D. Attending physician on admission: Marguerite Simpson MD Consults: 08/21/16 23:49 Consult to Pastoral Services [CONS] Routine Comment: Pastoral Screen: Request School Childcare Attendant Visit Pastoral Screen Source of Request: Patient 08/22/16 09:44 Consult to Physician [CONS] Routine Comment: Consulting Provider: 08/23/16 13:52 Consult to Case Mgmt/Social Srvs [CONS] Routine Reason for Case Mgmt/Social Srvs: Swingbed/SNF/Alf Discharging clinician: Jean Marie Mancilla MD
[2016-08-24 12:01] VITALS: BP 134/64
== END 2016-08-24 14:07 | DRG 948 ==
LOC: EDUNIT# → EDBD → N.ED 20:08 → SUATTDRO 22:09 → N.EDINP 22:09 → N.ICU 22:42 → N.TELES 08-22 18:42
PROVIDERS: ADMIT Family Medicine; ATTEND Internal Medicine

== ENCOUNTER 2020-01-21 17:10 | Observation (INO) ==
[2020-01-21 17:46] LABS: Basophils % 0.5 % (0.0-0.8); Eosinophils # 0.2 10*3/uL (0.0-0.87); Eosinophils % 2.7 % (0.00-10.9); Hematocrit 35.4 VOL% (35.7-47.0); Hemoglobin 11.3 GM/DL (12.0-16.0); Immature Granulocytes % 0.5 %; Immature Granulocytes Absolute 0.03 #; Lymphocytes # 2.3 10*3/uL (1.4-4.0); Lymphocytes % 38.3 % (21.3-54.2); Mean Corpuscular HGB Conc 31.9 GM/DL (32-36); Mean Corpuscular Volume 93.9 FL (87-102); Mean Platelet Volume 9.9 FL (9.6-12.0); Monocytes % 9.3 % (1.7-12.7); Neutrophils % 48.7 % (38.7-73.9); Platelet Count 159 T/CUMM (130-400); Red Blood Count 3.77 MC/CUMM (3.8-5.5); Red Cell Distribution Width 13.2 % (9.3-17.3); White Blood Count 5.9 T/CUMM (4-12)
[2020-01-21 17:56] LABS: INR 0.9; PT Patient Result 10.1 SECS (9.8-11.9); Partial Thromboplastin Time 25.9 SECS (23.9-33.8)
[2020-01-21 18:15] LABS: Alanine Aminotransferase 23 U/L (13-56); Albumin 3.7 G/DL (3.4-5.0); Alkaline Phosphatase 105 U/L (45-117); Aspartate Amino Transferase 20 U/L (0-37); Bilirubin,Total < 0.39 MG/DL (0.2-1.0); Blood Urea Nitrogen 24 MG/DL (7-18); Calcium 9.1 MG/DL (8.5-10.1); Estimated Glom Filtration Rate 43 ML/MIN; Glucose 82 MG/DL (74-106); Osmolality,Calculated 279.5 MOS/KG (273-304); Total Protein 7.6 G/DL (6.4-8.3)
[2020-01-21] MEDS ORDERED: fentaNYL 100 MCG/2 ML VIAL IV STA (19:13)
[2020-01-21] MEDS ORDERED: ONDANSETRON 4 MG/2 ML VIAL IV ONE (19:13)
[2020-01-21] MEDS ORDERED: ONDANSETRON 4 MG/2 ML VIAL IV PRN (19:48)
[2020-01-21] MEDS ORDERED: GLUCAGON 1 MG VIAL IM PRN (19:48)
[2020-01-21] MEDS ORDERED: LABETALOL 20 MG/4 ML SYRINGE IV PRN (19:48)
[2020-01-21] MEDS ORDERED: DEXTROSE 50% 25 GM/50 ML VIAL IV PRN (19:48)
[2020-01-21] MEDS ORDERED: FONDAPARINUX 2.5 MG/0.5 ML SYRINGE SUBCUT SCH (21:00)
[2020-01-21] MEDS: ATORVASTATIN 40 MG TABLET PO SCH (21:53)
[2020-01-21 22:15] LABS: Troponin I < 0.015 NG/ML (0.00-0.045)
[2020-01-21] MEDS: INSULIN LISPRO 100 UNIT/ML SUBCUT SCH (23:06)
[2020-01-21] MEDS: KETOROLAC 30 MG/1 ML VIAL IV PRN (23:42)
[2020-01-22] MEDS: KETOROLAC 30 MG/1 ML VIAL IV PRN (05:41)
[2020-01-22 05:58] LABS: Basophils % 0.4 % (0.0-0.8); Eosinophils # 0.1 10*3/uL (0.0-0.87); Eosinophils % 2.7 % (0.00-10.9); Hematocrit 31.5 VOL% (35.7-47.0); Hemoglobin 10.2 GM/DL (12.0-16.0); Immature Granulocytes % 0.4 %; Immature Granulocytes Absolute 0.02 #; Lymphocytes # 2.1 10*3/uL (1.4-4.0); Lymphocytes % 46.8 % (21.3-54.2); Mean Corpuscular HGB Conc 32.4 GM/DL (32-36); Mean Corpuscular Volume 93.2 FL (87-102); Mean Platelet Volume 9.5 FL (9.6-12.0); Monocytes % 10.9 % (1.7-12.7); Neutrophils % 38.8 % (38.7-73.9); Platelet Count 116 T/CUMM (130-400); Red Blood Count 3.38 MC/CUMM (3.8-5.5); Red Cell Distribution Width 13.2 % (9.3-17.3); White Blood Count 4.5 T/CUMM (4-12)
[2020-01-22 06:19] LABS: Troponin I < 0.015 NG/ML (0.00-0.045)
[2020-01-22 06:25] LABS: Calcium 8.6 MG/DL (8.5-10.1); Osmolality,Calculated 287.1 MOS/KG (273-304); Risk Ratio 3.38; Thyroid Stimulating Hormone 2.29 uIU/ml (0.358-3.74)
[2020-01-22] MEDS: PANTOPRAZOLE 40 MG TABLET PO SCH (08:58)
[2020-01-22] MEDS: INSULIN LISPRO 100 UNIT/ML SUBCUT SCH ×4 (08:58→22:41)
[2020-01-22] MEDS ORDERED: ASPIRIN 325 MG TABLET PO SCH (09:00)
[2020-01-22] MEDS ORDERED: ACETAMINOPHEN 325 MG TABLET ONE (13:52)
[2020-01-22] MEDS: ACETAMINOPHEN 325 MG TABLET PO PRN ×2 (14:01→22:59)
[2020-01-22] MEDS ORDERED: NITROGLYCERIN SL 0.4 MG TABLET SL PRN (14:17)
[2020-01-22] MEDS ORDERED: GLUCAGON 1 MG VIAL IM PRN (14:21)
[2020-01-22] MEDS ORDERED: DEXTROSE 50% 25 GM/50 ML VIAL IV PRN (14:21)
[2020-01-22] MEDS: POTASSIUM CHLORIDE 10 MEQ TABLET PO SCH ×2 (14:46→22:42)
[2020-01-22] MEDS: TICAGRELOR 90 MG TABLET PO SCH (22:36)
[2020-01-22] MEDS: PROBENECID 500 MG TABLET PO SCH (22:36)
[2020-01-22] MEDS: carvediloL 6.25 MG TABLET PO SCH (22:41)
[2020-01-22] MEDS: levETIRAcetam 500 MG TABLET PO SCH (22:42)
[2020-01-22] MEDS: ATORVASTATIN 40 MG TABLET PO SCH ×2 (22:48→22:49)
[2020-01-22] MEDS: GABAPENTIN 300 MG CAPSULE PO SCH (22:57)
[2020-01-22] MEDS: TOPIRAMATE 200 MG TABLET PO SCH (22:58)
[2020-01-23 05:46] LABS: Basophils % 0.4 % (0.0-0.8); Eosinophils # 0.2 10*3/uL (0.0-0.87); Eosinophils % 3.8 % (0.00-10.9); Hematocrit 33.3 VOL% (35.7-47.0); Hemoglobin 10.7 GM/DL (12.0-16.0); Immature Granulocytes % 0.2 %; Immature Granulocytes Absolute 0.01 #; Lymphocytes # 2.1 10*3/uL (1.4-4.0); Lymphocytes % 44.9 % (21.3-54.2); Mean Corpuscular HGB Conc 32.1 GM/DL (32-36); Mean Corpuscular Volume 93.3 FL (87-102); Monocytes % 11.3 % (1.7-12.7); Neutrophils % 39.4 % (38.7-73.9); Platelet Count 125 T/CUMM (130-400); Red Blood Count 3.57 MC/CUMM (3.8-5.5); Red Cell Distribution Width 12.8 % (9.3-17.3); White Blood Count 4.7 T/CUMM (4-12)
[2020-01-23 06:20] LABS: Osmolality,Calculated 283.4 MOS/KG (273-304)
[2020-01-23] MEDS: LEVOTHYROXINE 25 MCG TABLET PO SCH (07:00)
[2020-01-23] MEDS: INSULIN LISPRO 100 UNIT/ML SUBCUT SCH ×4 (08:38→21:36)
[2020-01-23] MEDS: ASPIRIN EC 81 MG TABLET PO SCH (09:25)
[2020-01-23] MEDS: sitaGLIPtin 25 MG TABLET PO SCH (09:25)
[2020-01-23] MEDS: levETIRAcetam 500 MG TABLET PO SCH ×2 (09:25→21:37)
[2020-01-23] MEDS: TOPIRAMATE 200 MG TABLET PO SCH ×2 (09:25→21:38)
[2020-01-23] MEDS: POTASSIUM CHLORIDE 10 MEQ TABLET PO SCH ×3 (09:26→21:36)
[2020-01-23] MEDS: GABAPENTIN 300 MG CAPSULE PO SCH ×2 (09:26→21:35)
[2020-01-23] MEDS: FUROSEMIDE 80 MG TABLET PO SCH (09:26)
[2020-01-23] MEDS: PANTOPRAZOLE 40 MG TABLET PO SCH (09:26)
[2020-01-23] MEDS: TICAGRELOR 90 MG TABLET PO SCH ×2 (09:26→21:38)
[2020-01-23] MEDS: CALCIUM (CARBONATE) 600 MG TABLET PO SCH (09:27)
[2020-01-23] MEDS: lisinopriL 5 MG TABLET PO SCH (09:27)
[2020-01-23] MEDS: PROBENECID 500 MG TABLET PO SCH ×2 (09:27→21:34)
[2020-01-23] MEDS: SERTRALINE 100 MG TABLET PO SCH (09:27)
[2020-01-23] MEDS: carvediloL 6.25 MG TABLET PO SCH ×2 (09:27→21:36)
[2020-01-23 16:00] LABS: Troponin I < 0.015 NG/ML (0.00-0.045)
[2020-01-23] MEDS: KETOROLAC 30 MG/1 ML VIAL IV PRN (17:07)
[2020-01-23] MEDS: ATORVASTATIN 40 MG TABLET PO SCH ×2 (21:36→21:56)
[2020-01-24] MEDS: ACETAMINOPHEN 325 MG TABLET PO PRN (02:58)
[2020-01-24] MEDS: LEVOTHYROXINE 25 MCG TABLET PO SCH (06:35)
[2020-01-24] MEDS: INSULIN LISPRO 100 UNIT/ML SUBCUT SCH ×2 (09:08→13:59)
[2020-01-24] MEDS: TICAGRELOR 90 MG TABLET PO SCH (09:30)
[2020-01-24] MEDS: GABAPENTIN 300 MG CAPSULE PO SCH (09:30)
[2020-01-24] MEDS: TOPIRAMATE 200 MG TABLET PO SCH (09:31)
[2020-01-24] MEDS: sitaGLIPtin 25 MG TABLET PO SCH (09:31)
[2020-01-24] MEDS: FUROSEMIDE 80 MG TABLET PO SCH ×2 (09:31→09:41)
[2020-01-24] MEDS: PROBENECID 500 MG TABLET PO SCH (09:31)
[2020-01-24] MEDS: lisinopriL 5 MG TABLET PO SCH (09:32)
[2020-01-24] MEDS: CALCIUM (CARBONATE) 600 MG TABLET PO SCH (09:32)
[2020-01-24] MEDS: ASPIRIN EC 81 MG TABLET PO SCH (09:32)
[2020-01-24] MEDS: SERTRALINE 100 MG TABLET PO SCH (09:32)
[2020-01-24] MEDS: levETIRAcetam 500 MG TABLET PO SCH (09:32)
[2020-01-24] MEDS: POTASSIUM CHLORIDE 10 MEQ TABLET PO SCH (09:32)
[2020-01-24] MEDS: PANTOPRAZOLE 40 MG TABLET PO SCH (09:32)
[2020-01-24] MEDS: carvediloL 6.25 MG TABLET PO SCH (09:33)
[2020-01-24] MEDS ORDERED: INFLUENZA VIRUS VACCINE 0.5 ML SYRINGE IM ONE (09:35)
[2020-01-24 12:22] VITALS: BP 111/68
== END 2020-01-24 14:32 | disposition home or self-care (01) ==
LOC: N.ED 17:10 → N.EDINP 17:10 → SUATTDRO 19:48 → N.EDINP 22:30 → N.TELEN 22:35
PROVIDERS: ADMIT Internal Medicine; ATTEND Emergency Medicine

== ENCOUNTER 2021-03-13 05:55 | Inpatient (IN) ==
[2021-03-01 11:25] LABS: Basophils % 0.4 % (0.0-0.8); Eosinophils # 0.2 10*3/uL (0.0-0.87); Eosinophils % 3.2 % (0.00-10.9); Hematocrit 35.8 VOL% (35.7-47.0); Hemoglobin 11.4 GM/DL (12.0-16.0); Immature Granulocytes % 0.6 %; Immature Granulocytes Absolute 0.03 #; Lymphocytes # 1.5 10*3/uL (1.4-4.0); Lymphocytes % 31.9 % (21.3-54.2); Mean Corpuscular HGB Conc 31.8 GM/DL (32-36); Mean Corpuscular Volume 94.2 FL (87-102); Mean Platelet Volume 10.1 FL (9.6-12.0); Monocytes % 9.1 % (1.7-12.7); Neutrophils % 54.8 % (38.7-73.9); Platelet Count 157 T/CUMM (130-400); Red Cell Distribution Width 12.9 % (9.3-17.3); White Blood Count 4.7 T/CUMM (4-12)
[2021-03-01 11:45] LABS: Calcium 9.5 MG/DL (8.5-10.1); Osmolality,Calculated 285.1 MOS/KG (273-304); Potassium 4.4 MMOL/L (3.5-5.1)
[~2021-03-13 05:55] MED LIST: ALVIMOPAN 12 MG CAPSULE ONE; ERTAPENEM 1,000 MG VIAL ONE
[2021-03-13] MEDS ORDERED: ONDANSETRON 4 MG/2 ML VIAL ONE ×2 (06:31→12:42)
[2021-03-13] MEDS ORDERED: fentaNYL 100 MCG/2 ML VIAL ONE ×2 (06:31→08:20)
[2021-03-13] MEDS ORDERED: propofoL 200 MG/20 ML VIAL IV ONE (06:31)
[2021-03-13] MEDS ORDERED: LIDOCAINE 2% 5 ML VIAL ONE (06:31)
[2021-03-13] MEDS ORDERED: ROCURONIUM 50 MG/5 ML VIAL IV ONE ×2 (06:31→08:12)
[2021-03-13] MEDS ORDERED: DESFLURANE 1 UNIT/15 MINUTE INH ONE ×2 (06:31→12:06)
[2021-03-13] MEDS ORDERED: MIDAZOLAM 2 MG/2 ML VIAL ONE (06:32)
[2021-03-13] MEDS ORDERED: DIAZEPAM 5 MG TABLET PO ONE (06:35)
[2021-03-13] MEDS ORDERED: FAMOTIDINE 20 MG TABLET PO ONE (06:35)
[2021-03-13] MEDS ORDERED: ALVIMOPAN 12 MG CAPSULE PO STA (06:46)
[2021-03-13] MEDS: LACTATED RINGERS 1,000 ML IV SCH ×3 (06:59→21:25)
[2021-03-13] MEDS ORDERED: ERTAPENEM 1,000 MG in SODIUM CHLORIDE 0.9% 100 ML IV ONE (07:00)
[2021-03-13] MEDS ORDERED: INDOCYANINE GREEN 25 MG VIAL IV ONE ×2 (07:16)
[2021-03-13] MEDS ORDERED: BUPIVACAINE MPF 0.25% 30 ML VIAL ONE (07:30)
[2021-03-13] MEDS ORDERED: LIDOCAINE 1%/EPI INJ 20 ML VIAL ONE (07:31)
[2021-03-13] MEDS ORDERED: ePHEDrine 50 MG/ML VIAL ONE (07:42)
[2021-03-13] MEDS ORDERED: TISSUE ADHESIVE 1 EACH APPLICATOR TOP ONE (08:30)
[2021-03-13] MEDS ORDERED: NEOSTIGMINE 10 MG/10 ML VIAL ONE (08:50)
[2021-03-13] MEDS ORDERED: GLYCOPYRROLATE 0.4 MG/2 ML VIAL ONE ×2 (08:50→10:54)
[2021-03-13] MEDS ORDERED: PHENYLEPHRINE 1 MG/10 ML SYRINGE IV ONE ×2 (08:50→10:54)
[2021-03-13] MEDS ORDERED: ERGOCALCIFEROL 50,000 UNIT CAPSULE PO SCH (09:00)
[2021-03-13] MEDS ORDERED: HYDROmorphone 2 MG/1 ML VIAL ONE (12:42)
[2021-03-13] MEDS ORDERED: ONDANSETRON 4 MG/2 ML VIAL IV PRN ×2 (12:45→18:07)
[2021-03-13] MEDS: HYDROmorphone 2 MG/1 ML VIAL IV PRN ×4 (12:48→15:46)
[2021-03-13] MEDS ORDERED: INFLUENZA VIRUS VACCINE 0.5 ML SYRINGE IM ONE (18:16)
[2021-03-13 19:06] LABS: Basophils % 0.1 % (0.0-0.8); Hematocrit 35.6 VOL% (35.7-47.0); Hemoglobin 11.5 GM/DL (12.0-16.0); Immature Granulocytes % 0.6 %; Immature Granulocytes Absolute 0.04 #; Lymphocytes # 0.7 10*3/uL (1.4-4.0); Lymphocytes % 10.9 % (21.3-54.2); Mean Corpuscular HGB Conc 32.3 GM/DL (32-36); Mean Corpuscular Volume 93.2 FL (87-102); Mean Platelet Volume 9.8 FL (9.6-12.0); Monocytes % 9.4 % (1.7-12.7); Platelet Count 133 T/CUMM (130-400); Red Blood Count 3.82 MC/CUMM (3.8-5.5); Red Cell Distribution Width 12.9 % (9.3-17.3); White Blood Count 6.8 T/CUMM (4-12)
[2021-03-13 19:18] LABS: Calcium 8.9 MG/DL (8.5-10.1); Osmolality,Calculated 278.7 MOS/KG (273-304); Potassium 4.3 MMOL/L (3.5-5.1)
[2021-03-13] MEDS: POTASSIUM CHLORIDE 10 MEQ TABLET PO SCH ×2 (19:25→21:20)
[2021-03-13] MEDS: KETOROLAC 15 MG/1 ML VIAL IV SCH (19:30)
[2021-03-13] MEDS: ALVIMOPAN 12 MG CAPSULE PO SCH (21:20)
[2021-03-13] MEDS: SERTRALINE 100 MG TABLET PO SCH (21:20)
[2021-03-13] MEDS: levETIRAcetam 500 MG TABLET PO SCH (21:20)
[2021-03-13] MEDS: carvediloL 6.25 MG TABLET PO SCH (21:21)
[2021-03-13] MEDS: GABAPENTIN 400 MG CAPSULE PO SCH (21:21)
[2021-03-13] MEDS: ASPIRIN EC 81 MG TABLET PO SCH (21:21)
[2021-03-13] MEDS: HYDROXYCHLOROQUINE 200 MG TABLET PO SCH (21:21)
[2021-03-13] MEDS: ATORVASTATIN 40 MG TABLET PO SCH (21:21)
[2021-03-13 23:42] LABS: Hematocrit 35.5 VOL% (35.7-47.0); Hemoglobin 11.6 GM/DL (12.0-16.0)
[2021-03-14] MEDS: KETOROLAC 15 MG/1 ML VIAL IV SCH ×4 (00:09→17:32)
[2021-03-14] MEDS: PROBENECID 500 MG TABLET PO SCH ×2 (00:09→10:11)
[2021-03-14 06:21] LABS: Basophils % 0.2 % (0.0-0.8); Eosinophils % 0.5 % (0.00-10.9); Hematocrit 35.1 VOL% (35.7-47.0); Hemoglobin 11.3 GM/DL (12.0-16.0); Immature Granulocytes % 0.5 %; Immature Granulocytes Absolute 0.03 #; Lymphocytes # 1.1 10*3/uL (1.4-4.0); Lymphocytes % 19.7 % (21.3-54.2); Mean Corpuscular HGB Conc 32.2 GM/DL (32-36); Mean Corpuscular Volume 93.4 FL (87-102); Mean Platelet Volume 9.9 FL (9.6-12.0); Monocytes % 9.6 % (1.7-12.7); Neutrophils % 69.5 % (38.7-73.9); Platelet Count 128 T/CUMM (130-400); Red Blood Count 3.76 MC/CUMM (3.8-5.5); Red Cell Distribution Width 12.8 % (9.3-17.3); White Blood Count 5.7 T/CUMM (4-12)
[2021-03-14 06:38] LABS: Calcium 8.7 MG/DL (8.5-10.1); Osmolality,Calculated 278.5 MOS/KG (273-304); Potassium 4.3 MMOL/L (3.5-5.1)
[2021-03-14 06:46] LABS: Hypochromasia 1+; Lymphocytes 23 % (20-55); Microcytosis 1+; Platelet Estimate Normal; Segmented Neutrophils 72 % (50-85); Total Cells Counted 100
[2021-03-14 06:47] LABS: Atypical Lymphocytes Few
[2021-03-14] MEDS: LACTATED RINGERS 1,000 ML IV SCH ×2 (07:00→21:22)
[2021-03-14] MEDS: LEVOTHYROXINE 50 MCG TABLET PO SCH (07:30)
[2021-03-14] MEDS: HYDROXYCHLOROQUINE 200 MG TABLET PO SCH ×2 (10:11→21:23)
[2021-03-14] MEDS: POTASSIUM CHLORIDE 10 MEQ TABLET PO SCH ×3 (10:11→21:22)
[2021-03-14] MEDS: carvediloL 6.25 MG TABLET PO SCH ×2 (10:11→21:23)
[2021-03-14] MEDS: CYANOCOBALAMIN 500 MCG TABLET PO SCH (10:11)
[2021-03-14] MEDS: GABAPENTIN 400 MG CAPSULE PO SCH ×2 (10:11→21:23)
[2021-03-14] MEDS: PANTOPRAZOLE 40 MG TABLET PO SCH (10:11)
[2021-03-14] MEDS: ALVIMOPAN 12 MG CAPSULE PO SCH ×2 (10:11→21:23)
[2021-03-14] MEDS: CALCIUM (CARBONATE) 500 MG TABLET PO SCH (10:11)
[2021-03-14] MEDS: OMEGA 3 ACID ETHYL ESTERS 1 GM CAPSULE PO SCH (10:11)
[2021-03-14] MEDS: levETIRAcetam 500 MG TABLET PO SCH ×2 (10:11→21:22)
[2021-03-14] MEDS: HEPARIN 5,000 UNIT/1 ML VIAL SUBCUT SCH ×2 (12:14→21:22)
[2021-03-14] MEDS: HYDROmorphone 2 MG/1 ML VIAL IV PRN (12:31)
[2021-03-14] MEDS: SERTRALINE 100 MG TABLET PO SCH (21:23)
[2021-03-14] MEDS: ATORVASTATIN 40 MG TABLET PO SCH (21:23)
[2021-03-14] MEDS: ASPIRIN EC 81 MG TABLET PO SCH (21:23)
[2021-03-15] MEDS: PROBENECID 500 MG TABLET PO SCH ×4 (00:09→20:29)
[2021-03-15] MEDS: KETOROLAC 15 MG/1 ML VIAL IV SCH ×5 (00:20→23:10)
[2021-03-15] MEDS: HYDROmorphone 2 MG/1 ML VIAL IV PRN (00:30)
[2021-03-15] MEDS: HEPARIN 5,000 UNIT/1 ML VIAL SUBCUT SCH (05:30)
[2021-03-15] MEDS: LEVOTHYROXINE 50 MCG TABLET PO SCH (05:30)
[2021-03-15] MEDS: GABAPENTIN 400 MG CAPSULE PO SCH ×2 (09:19→20:28)
[2021-03-15] MEDS: HYDROXYCHLOROQUINE 200 MG TABLET PO SCH ×2 (09:19→20:29)
[2021-03-15] MEDS: OMEGA 3 ACID ETHYL ESTERS 1 GM CAPSULE PO SCH (09:19)
[2021-03-15] MEDS: carvediloL 6.25 MG TABLET PO SCH ×2 (09:19→16:36)
[2021-03-15] MEDS: CYANOCOBALAMIN 500 MCG TABLET PO SCH (09:19)
[2021-03-15] MEDS: CALCIUM (CARBONATE) 500 MG TABLET PO SCH (09:19)
[2021-03-15] MEDS: levETIRAcetam 500 MG TABLET PO SCH ×2 (09:19→20:28)
[2021-03-15] MEDS: ALVIMOPAN 12 MG CAPSULE PO SCH ×2 (09:19→20:28)
[2021-03-15] MEDS: POTASSIUM CHLORIDE 10 MEQ TABLET PO SCH ×3 (09:19→20:28)
[2021-03-15] MEDS: PANTOPRAZOLE 40 MG TABLET PO SCH (09:19)
[2021-03-15] MEDS: LACTATED RINGERS 1,000 ML IV SCH (09:22)
[2021-03-15 10:18] LABS: Basophils % 0.2 % (0.0-0.8); Eosinophils # 0.1 10*3/uL (0.0-0.87); Eosinophils % 2.4 % (0.00-10.9); Hematocrit 29.2 VOL% (35.7-47.0); Immature Granulocytes % 0.6 %; Immature Granulocytes Absolute 0.03 #; Lymphocytes # 1.4 10*3/uL (1.4-4.0); Lymphocytes % 27.6 % (21.3-54.2); Mean Corpuscular HGB Conc 31.5 GM/DL (32-36); Mean Corpuscular Volume 94.5 FL (87-102); Mean Platelet Volume 9.4 FL (9.6-12.0); Monocytes % 13.8 % (1.7-12.7); Neutrophils % 55.4 % (38.7-73.9); Platelet Count 121 T/CUMM (130-400); Red Blood Count 3.09 MC/CUMM (3.8-5.5); Red Cell Distribution Width 13.2 % (9.3-17.3); White Blood Count 4.9 T/CUMM (4-12)
[2021-03-15 10:23] LABS: Hemoglobin 9.2 GM/DL (12.0-16.0)
[2021-03-15 10:33] LABS: Calcium 8.4 MG/DL (8.5-10.1); Osmolality,Calculated 279.5 MOS/KG (273-304); Potassium 4.1 MMOL/L (3.5-5.1)
[2021-03-15] MEDS ORDERED: LACTATED RINGERS 1,000 ML IV ONE (11:18)
[2021-03-15 14:48] LABS: Hematocrit 27.6 VOL% (35.7-47.0); Hemoglobin 8.8 GM/DL (12.0-16.0)
[2021-03-15] MEDS: ATORVASTATIN 40 MG TABLET PO SCH (20:28)
[2021-03-15] MEDS: ASPIRIN EC 81 MG TABLET PO SCH (20:29)
[2021-03-15] MEDS: SERTRALINE 100 MG TABLET PO SCH (20:29)
[2021-03-16] MEDS: LACTATED RINGERS 1,000 ML IV SCH (02:15)
[2021-03-16] MEDS: HYDROmorphone 2 MG/1 ML VIAL IV PRN (02:25)
[2021-03-16] MEDS: LEVOTHYROXINE 50 MCG TABLET PO SCH (06:10)
[2021-03-16] MEDS: KETOROLAC 15 MG/1 ML VIAL IV SCH (06:10)
[2021-03-16 06:19] LABS: Basophils % 0.4 % (0.0-0.8); Eosinophils # 0.2 10*3/uL (0.0-0.87); Eosinophils % 3.3 % (0.00-10.9); Hematocrit 26.8 VOL% (35.7-47.0); Hemoglobin 8.8 GM/DL (12.0-16.0); Immature Granulocytes % 0.4 %; Immature Granulocytes Absolute 0.02 #; Lymphocytes # 1.5 10*3/uL (1.4-4.0); Mean Corpuscular HGB Conc 32.8 GM/DL (32-36); Mean Corpuscular Volume 92.7 FL (87-102); Mean Platelet Volume 10.2 FL (9.6-12.0); Neutrophils % 53.9 % (38.7-73.9); Platelet Count 127 T/CUMM (130-400); Red Blood Count 2.89 MC/CUMM (3.8-5.5); Red Cell Distribution Width 12.7 % (9.3-17.3); White Blood Count 4.9 T/CUMM (4-12)
[2021-03-16 06:44] LABS: Calcium 8.4 MG/DL (8.5-10.1); Osmolality,Calculated 279.5 MOS/KG (273-304); Potassium 4.5 MMOL/L (3.5-5.1)
[2021-03-16 06:47] LABS: Band Neutrophils 2 % (0-10); Eosinophils 6 % (0-10); Hypochromasia Slight; Lymphocytes 30 % (20-55); Microcytosis 1+; Segmented Neutrophils 48 % (50-85); Total Cells Counted 100
[2021-03-16 06:48] LABS: Ovalocytes Slight; Platelet Estimate Adequate
[2021-03-16] MEDS: CALCIUM (CARBONATE) 500 MG TABLET PO SCH (09:21)
[2021-03-16] MEDS: HYDROXYCHLOROQUINE 200 MG TABLET PO SCH (09:21)
[2021-03-16] MEDS: PANTOPRAZOLE 40 MG TABLET PO SCH (09:21)
[2021-03-16] MEDS: levETIRAcetam 500 MG TABLET PO SCH (09:21)
[2021-03-16] MEDS: CYANOCOBALAMIN 500 MCG TABLET PO SCH (09:21)
[2021-03-16] MEDS: OMEGA 3 ACID ETHYL ESTERS 1 GM CAPSULE PO SCH (09:21)
[2021-03-16] MEDS: POTASSIUM CHLORIDE 10 MEQ TABLET PO SCH ×2 (09:21→16:04)
[2021-03-16] MEDS: GABAPENTIN 400 MG CAPSULE PO SCH (09:21)
[2021-03-16] MEDS: ALVIMOPAN 12 MG CAPSULE PO SCH (09:21)
[2021-03-16] MEDS: carvediloL 6.25 MG TABLET PO SCH (09:22)
[2021-03-16] MEDS: PROBENECID 500 MG TABLET PO SCH (09:22)
[2021-03-16 11:37] VITALS: BP 109/56
== END 2021-03-16 16:56 | disposition home health service (06) | DRG 330 ==
LOC: N.OR 05:55 → N.SDSINP 06:01 → N.3E 18:06
PROVIDERS: ADMIT Surgery; ATTEND Surgery

== ENCOUNTER 2021-10-20 06:05 | Inpatient (IN) ==
[2021-10-18 11:24] LABS: Basophils % 0.6 % (0.0-0.8); Eosinophils # 0.2 10*3/uL (0.0-0.87); Eosinophils % 5.1 % (0.00-10.9); Hematocrit 35.5 VOL% (35.7-47.0); Hemoglobin 11.7 GM/DL (12.0-16.0); Immature Granulocytes % 0.6 %; Immature Granulocytes Absolute 0.02 #; Lymphocytes # 1.2 10*3/uL (1.4-4.0); Lymphocytes % 36.6 % (21.3-54.2); Mean Corpuscular Volume 90.8 FL (87-102); Mean Platelet Volume 10.7 FL (9.6-12.0); Monocytes # 0.4 10*3/uL (0.11-0.8); Monocytes % 12.6 % (1.7-12.7); Neutrophils % 44.5 % (38.7-73.9); Platelet Count 157 T/CUMM (130-400); Red Blood Count 3.91 MC/CUMM (3.8-5.5); Red Cell Distribution Width 13.1 % (9.3-17.3); White Blood Count 3.3 T/CUMM (4-12)
[2021-10-18 11:36] LABS: PT Patient Result 10.9 SECS (10.5-12.0); Partial Thromboplastin Time 25.1 SECS (23.7-32.9)
[2021-10-18 11:48] LABS: Calcium 9.4 MG/DL (8.5-10.1); Osmolality,Calculated 277.5 MOS/KG (273-304); Potassium 4.2 MMOL/L (3.5-5.1)
[~2021-10-20 06:05] MED LIST changes: -ALVIMOPAN 12 MG CAPSULE ONE; +LIDOCAINE 2% 5 ML VIAL ONE; +MIDAZOLAM 2 MG/2 ML VIAL ONE; +ONDANSETRON 4 MG/2 ML VIAL ONE; +ROCURONIUM 50 MG/5 ML VIAL IV ONE; +SUCCINYLCHOLINE 200 MG/10 ML VIAL ONE; +propofoL 200 MG/20 ML VIAL IV ONE
[2021-10-20] MEDS ORDERED: PHENYLEPHRINE 1 MG/10 ML SYRINGE IV ONE ×2 (06:27→08:07)
[2021-10-20] MEDS ORDERED: ALVIMOPAN 12 MG CAPSULE ONE (06:35)
[2021-10-20] MEDS ORDERED: ROPIVACAINE 0.5% 30 ML VIAL ONE (06:39)
[2021-10-20] MEDS ORDERED: DEXAMETHASONE 4 MG/1 ML VIAL ONE (06:39)
[2021-10-20] MEDS ORDERED: ALVIMOPAN 12 MG CAPSULE PO ONE (06:40)
[2021-10-20] MEDS ORDERED: LIDOCAINE 1% 5 ML VIAL ONE (06:41)
[2021-10-20] MEDS ORDERED: BUPIVACAINE MPF 0.25% 10 ML VIAL ONE (07:01)
[2021-10-20] MEDS ORDERED: LIDOCAINE 1%/EPI INJ 20 ML VIAL ONE (07:01)
[2021-10-20] MEDS: LACTATED RINGERS 1,000 ML IV SCH ×3 (07:30→14:06)
[2021-10-20] MEDS ORDERED: fentaNYL 100 MCG/2 ML VIAL ONE (07:37)
[2021-10-20] MEDS ORDERED: ePHEDrine 50 MG/ML VIAL ONE (07:48)
[2021-10-20] MEDS ORDERED: GLYCOPYRROLATE 0.4 MG/2 ML VIAL ONE (08:07)
[2021-10-20] MEDS ORDERED: ROCURONIUM 50 MG/5 ML VIAL IV ONE (10:17)
[2021-10-20] MEDS ORDERED: propofoL 200 MG/20 ML VIAL IV ONE (10:27)
[2021-10-20] MEDS ORDERED: INDOCYANINE GREEN 25 MG VIAL IV ONE (10:47)
[2021-10-20] MEDS ORDERED: SUGAMMADEX 200 MG/2 ML VIAL IV ONE (10:58)
[2021-10-20] MEDS ORDERED: HYDROmorphone 1 MG/1 ML SYRINGE ONE (11:07)
[2021-10-20] MEDS ORDERED: TISSUE ADHESIVE 1 EACH APPLICATOR TOP ONE ×2 (11:15→11:56)
[2021-10-20] MEDS ORDERED: KETOROLAC 30 MG/1 ML VIAL ONE (11:16)
[2021-10-20] MEDS ORDERED: SEVOFLURANE 1 UNIT/15 MINUTE INH ONE (11:50)
[2021-10-20] MEDS ORDERED: ONDANSETRON 4 MG/2 ML VIAL IV PRN (12:11)
[2021-10-20] MEDS ORDERED: HYDROmorphone 1 MG/1 ML SYRINGE IV PRN (12:11)
[2021-10-20 12:29] LABS: Basophils % 0.3 % (0.0-0.8); Eosinophils # 0.1 10*3/uL (0.0-0.87); Eosinophils % 1.6 % (0.00-10.9); Hematocrit 35.4 VOL% (35.7-47.0); Hemoglobin 11.6 GM/DL (12.0-16.0); Immature Granulocytes % 0.5 %; Immature Granulocytes Absolute 0.02 #; Lymphocytes # 1.2 10*3/uL (1.4-4.0); Lymphocytes % 32.9 % (21.3-54.2); Mean Corpuscular HGB Conc 32.8 GM/DL (32-36); Mean Corpuscular Volume 91.9 FL (87-102); Mean Platelet Volume 9.4 FL (9.6-12.0); Monocytes # 0.3 10*3/uL (0.11-0.8); Monocytes % 8.1 % (1.7-12.7); Neutrophils % 56.6 % (38.7-73.9); Platelet Count 132 T/CUMM (130-400); Red Blood Count 3.85 MC/CUMM (3.8-5.5); White Blood Count 3.7 T/CUMM (4-12)
[2021-10-20 12:50] LABS: Calcium 8.7 MG/DL (8.5-10.1); Osmolality,Calculated 283.3 MOS/KG (273-304); Potassium 4.2 MMOL/L (3.5-5.1)
[2021-10-20] MEDS: ERGOCALCIFEROL 50,000 UNIT CAPSULE PO SCH (14:02)
[2021-10-20] MEDS: KETOROLAC 30 MG/1 ML VIAL IV SCH ×2 (14:04→21:42)
[2021-10-20] MEDS: POTASSIUM CHLORIDE 10 MEQ TABLET PO SCH ×2 (15:42→21:40)
[2021-10-20] MEDS: carvediloL 6.25 MG TABLET PO SCH (17:15)
[2021-10-20] MEDS ORDERED: PROBENECID 500 MG TABLET PO SCH (21:00)
[2021-10-20] MEDS: ASPIRIN EC 81 MG TABLET PO SCH (21:40)
[2021-10-20] MEDS: levETIRAcetam 250 MG TABLET PO SCH (21:40)
[2021-10-20] MEDS: ALVIMOPAN 12 MG CAPSULE PO SCH (21:40)
[2021-10-20] MEDS: GABAPENTIN 400 MG CAPSULE PO SCH (21:40)
[2021-10-20] MEDS: SERTRALINE 100 MG TABLET PO SCH (21:40)
[2021-10-20] MEDS: ATORVASTATIN 40 MG TABLET PO SCH (21:40)
[2021-10-21] MEDS: LACTATED RINGERS 1,000 ML IV SCH ×3 (00:44→20:38)
[2021-10-21] MEDS: KETOROLAC 30 MG/1 ML VIAL IV SCH ×2 (02:08→09:33)
[2021-10-21 06:17] LABS: Basophils % 0.1 % (0.0-0.8); Eosinophils # 0.1 10*3/uL (0.0-0.87); Hematocrit 32.4 VOL% (35.7-47.0); Hemoglobin 10.6 GM/DL (12.0-16.0); Immature Granulocytes % 0.4 %; Immature Granulocytes Absolute 0.03 #; Lymphocytes # 0.8 10*3/uL (1.4-4.0); Lymphocytes % 12.4 % (21.3-54.2); Mean Corpuscular HGB Conc 32.7 GM/DL (32-36); Mean Corpuscular Volume 91.3 FL (87-102); Mean Platelet Volume 9.6 FL (9.6-12.0); Monocytes # 0.6 10*3/uL (0.11-0.8); Monocytes % 8.5 % (1.7-12.7); Neutrophils % 77.6 % (38.7-73.9); Platelet Count 132 T/CUMM (130-400); Red Blood Count 3.55 MC/CUMM (3.8-5.5); White Blood Count 6.7 T/CUMM (4-12)
[2021-10-21] MEDS: LEVOTHYROXINE 50 MCG TABLET PO SCH (06:17)
[2021-10-21 06:35] LABS: Calcium 8.2 MG/DL (8.5-10.1); Osmolality,Calculated 283.4 MOS/KG (273-304); Potassium 4.3 MMOL/L (3.5-5.1)
[2021-10-21] MEDS: ALVIMOPAN 12 MG CAPSULE PO SCH ×2 (09:32→20:44)
[2021-10-21] MEDS: OMEGA 3 ACID ETHYL ESTERS 1 GM CAPSULE PO SCH (09:32)
[2021-10-21] MEDS: carvediloL 6.25 MG TABLET PO SCH ×2 (09:32→17:08)
[2021-10-21] MEDS: PANTOPRAZOLE 40 MG TABLET PO SCH (09:32)
[2021-10-21] MEDS: levETIRAcetam 250 MG TABLET PO SCH ×2 (09:32→20:44)
[2021-10-21] MEDS: FONDAPARINUX 2.5 MG/0.5 ML SYRINGE SUBCUT SCH (09:33)
[2021-10-21] MEDS: CYANOCOBALAMIN 500 MCG TABLET PO SCH (09:33)
[2021-10-21] MEDS: GABAPENTIN 400 MG CAPSULE PO SCH ×2 (09:33→20:45)
[2021-10-21] MEDS: TOPIRAMATE 200 MG TABLET PO SCH (09:33)
[2021-10-21] MEDS: CALCIUM (CARBONATE) 500 MG TABLET PO SCH (09:33)
[2021-10-21] MEDS: POTASSIUM CHLORIDE 10 MEQ TABLET PO SCH ×3 (09:33→20:44)
[2021-10-21] MEDS: NON-FORMULARY MEDICATION (Chlorpheniramine Maleate [Chlortabs] 4 mg Tablet) PO SCH (09:33)
[2021-10-21] MEDS: ATORVASTATIN 40 MG TABLET PO SCH (20:44)
[2021-10-21] MEDS: SERTRALINE 100 MG TABLET PO SCH (20:45)
[2021-10-21] MEDS: ASPIRIN EC 81 MG TABLET PO SCH (20:45)
[2021-10-22 05:46] LABS: Basophils % 0.1 % (0.0-0.8); Eosinophils # 0.1 10*3/uL (0.0-0.87); Eosinophils % 1.6 % (0.00-10.9); Hemoglobin 9.7 GM/DL (12.0-16.0); Immature Granulocytes % 0.7 %; Immature Granulocytes Absolute 0.05 #; Lymphocytes # 1.1 10*3/uL (1.4-4.0); Lymphocytes % 15.5 % (21.3-54.2); Mean Corpuscular HGB Conc 32.3 GM/DL (32-36); Mean Corpuscular Volume 93.5 FL (87-102); Mean Platelet Volume 10.3 FL (9.6-12.0); Monocytes # 0.6 10*3/uL (0.11-0.8); Monocytes % 7.9 % (1.7-12.7); Neutrophils % 74.2 % (38.7-73.9); Platelet Count 113 T/CUMM (130-400); Red Blood Count 3.21 MC/CUMM (3.8-5.5); Red Cell Distribution Width 13.1 % (9.3-17.3); White Blood Count 7.1 T/CUMM (4-12)
[2021-10-22] MEDS: LEVOTHYROXINE 50 MCG TABLET PO SCH (05:48)
[2021-10-22] MEDS: LACTATED RINGERS 1,000 ML IV SCH ×2 (05:49→17:51)
[2021-10-22 06:01] LABS: Calcium 8.1 MG/DL (8.5-10.1); Osmolality,Calculated 276.8 MOS/KG (273-304); Potassium 4.2 MMOL/L (3.5-5.1)
[2021-10-22] MEDS: PANTOPRAZOLE 40 MG TABLET PO SCH (09:50)
[2021-10-22] MEDS: ALVIMOPAN 12 MG CAPSULE PO SCH ×2 (09:50→21:55)
[2021-10-22] MEDS: levETIRAcetam 250 MG TABLET PO SCH ×2 (09:50→21:56)
[2021-10-22] MEDS: CYANOCOBALAMIN 500 MCG TABLET PO SCH (09:50)
[2021-10-22] MEDS: GABAPENTIN 400 MG CAPSULE PO SCH ×2 (09:50→21:56)
[2021-10-22] MEDS: carvediloL 6.25 MG TABLET PO SCH ×2 (09:51→17:52)
[2021-10-22] MEDS: NON-FORMULARY MEDICATION (Chlorpheniramine Maleate [Chlortabs] 4 mg Tablet) PO SCH (09:51)
[2021-10-22] MEDS: TOPIRAMATE 200 MG TABLET PO SCH (09:51)
[2021-10-22] MEDS: CALCIUM (CARBONATE) 500 MG TABLET PO SCH (09:51)
[2021-10-22] MEDS: OMEGA 3 ACID ETHYL ESTERS 1 GM CAPSULE PO SCH (09:51)
[2021-10-22] MEDS: POTASSIUM CHLORIDE 10 MEQ TABLET PO SCH ×3 (09:51→21:55)
[2021-10-22] MEDS: FONDAPARINUX 2.5 MG/0.5 ML SYRINGE SUBCUT SCH (09:51)
[2021-10-22] MEDS: ASPIRIN EC 81 MG TABLET PO SCH (21:55)
[2021-10-22] MEDS: SERTRALINE 100 MG TABLET PO SCH (21:56)
[2021-10-22] MEDS: ATORVASTATIN 40 MG TABLET PO SCH (21:56)
[2021-10-23] MEDS: LACTATED RINGERS 1,000 ML IV SCH ×2 (03:11→15:33)
[2021-10-23] MEDS: LEVOTHYROXINE 50 MCG TABLET PO SCH (05:35)
[2021-10-23 06:51] LABS: Basophils % 0.2 % (0.0-0.8); Eosinophils # 0.2 10*3/uL (0.0-0.87); Eosinophils % 2.8 % (0.00-10.9); Hematocrit 28.1 VOL% (35.7-47.0); Immature Granulocytes % 0.4 %; Immature Granulocytes Absolute 0.02 #; Lymphocytes # 1.1 10*3/uL (1.4-4.0); Lymphocytes % 19.3 % (21.3-54.2); Mean Corpuscular Volume 92.7 FL (87-102); Mean Platelet Volume 10.6 FL (9.6-12.0); Monocytes # 0.6 10*3/uL (0.11-0.8); Monocytes % 11.1 % (1.7-12.7); Neutrophils % 66.2 % (38.7-73.9); Platelet Count 111 T/CUMM (130-400); Red Blood Count 3.03 MC/CUMM (3.8-5.5); Red Cell Distribution Width 13.2 % (9.3-17.3); White Blood Count 5.7 T/CUMM (4-12)
[2021-10-23 07:33] LABS: Potassium 4.3 MMOL/L (3.5-5.1)
[2021-10-23] MEDS: carvediloL 6.25 MG TABLET PO SCH (08:22)
[2021-10-23] MEDS: GABAPENTIN 400 MG CAPSULE PO SCH (08:22)
[2021-10-23] MEDS: ERGOCALCIFEROL 50,000 UNIT CAPSULE PO SCH (08:23)
[2021-10-23] MEDS: ALVIMOPAN 12 MG CAPSULE PO SCH (08:23)
[2021-10-23] MEDS: PANTOPRAZOLE 40 MG TABLET PO SCH (08:23)
[2021-10-23] MEDS: CYANOCOBALAMIN 500 MCG TABLET PO SCH (08:23)
[2021-10-23] MEDS: levETIRAcetam 250 MG TABLET PO SCH (08:23)
[2021-10-23] MEDS: CALCIUM (CARBONATE) 500 MG TABLET PO SCH (08:23)
[2021-10-23] MEDS: TOPIRAMATE 200 MG TABLET PO SCH (08:23)
[2021-10-23] MEDS: POTASSIUM CHLORIDE 10 MEQ TABLET PO SCH ×2 (08:23→15:34)
[2021-10-23] MEDS: OMEGA 3 ACID ETHYL ESTERS 1 GM CAPSULE PO SCH (08:23)
[2021-10-23] MEDS: FONDAPARINUX 2.5 MG/0.5 ML SYRINGE SUBCUT SCH (08:26)
[2021-10-23] MEDS: NON-FORMULARY MEDICATION (Chlorpheniramine Maleate [Chlortabs] 4 mg Tablet) PO SCH (08:30)
[2021-10-23 15:47] VITALS: BP 128/65
== END 2021-10-23 16:02 | disposition home health service (06) | DRG 330 ==
LOC: N.OR 06:05 → N.TELES 06:05 → N.SDSINP 06:06 → N.TELES 10:55 → N.3E 16:04
PROVIDERS: ADMIT Surgery; ATTEND Surgery